=== PATIENT | male | born 1940 | race Caucasian/White ===

== ENCOUNTER 2016-07-02 14:02 | Observation (INO) | payer MEDICARE, OTHER ==
[~2016-07-02] VITALS: Ht 180.3 cm; Wt 63.3 kg
[~2016-07-02 14:02] MED LIST: 1-ME1LIQ PO; ASPI325T; CIAL5TAB PO; FOLI1TAB; IRON325T2 PO; LEVO50TA4 PO; LISI-360 PO; PRAV20 PO
[2016-07-02 14:08] VITALS: BP 110/74; PULSE 79; RESP 20; TEMP 97.8; O2SAT 97
[2016-07-02] MEDS ORDERED: ZYRT10CA PO (14:15)
--- NOTE | 2016-07-02 14:41 | PD ---
HPI Chief Complaint: Dizziness Time Seen by Provider: 14:20 Travel History International Travel<30 days: No Contact w/Intl Traveler<30days: No Traveled to known affect area: No History of Present Illness HPI This 75-year-old male says he been feeling dizzy off and on for over a year. His been worse the last couple of days. By dizziness she means that he has no equilibrium. His daughter came to see him yesterday and noted that his speech was slurred last night. She was concerned he might be having a stroke. This is improved. He says that he has fallen 5 or 6 times in the past week. He had had a stroke in the past and has been admitted to the hospital for dizziness previously. He had been on aspirin but has stopped that. His daughter says that he has stopped a lot of medications to see what is allergic to. He's also had a 40-50 pound weight loss in the last few months. He says that he has no appetite. He's had an itchy rash on his body for over a year. He got up and when he came back from [facility]. PFSH Past Medical History Arthritis: No Asthma: No Heart Rhythm Problems: No Cardiovascular Problems: Yes High Cholesterol: Yes Chest Pain: No COPD: No Cerebrovascular Accident: Yes Diabetes: No Diminished Hearing: No Diverticulitis: Yes Endocrine: Yes GERD: No Glaucoma: No Headaches: No Hepatitis: No Hiatal Hernia: No Hypertension: Yes Immune Disorder: No Kidney Stones: No Musculoskeletal: No Neurologic: No Psychiatric: No Respiratory: No Immunizations Current: Yes Renal Failure: No Seizures: No Sleep Apnea: No Thyroid Disease: Yes Ulcer: No Influenza Vaccination: Yes Past Surgical History Abdominal Surgery: Yes (BOWEL RESECTION X 2 FOR DIVERTICULITIS 1981 2006) AICD: No Appendectomy: Yes Cardiac Surgery: No Endocrine Surgery: No Genitourinary Surgery: No Gynecologic Surgery: No Neurologic Surgery: Yes (STROKE:TIA) Pacemaker: No Thoracic Surgery: No Other Surgery: Yes (PARTIAL THYROIDECTOMY) Social History Alcohol Use: Yes (12 PACK PER WEEK) Tobacco Use: No Substance Use: No Allergies-Medications (Allergen,Severity, Reaction): Coded Allergies: MRI PRECAUTION (Verified Adverse Reaction, Severe, METAL IN LEFT EYE (RBN ) 10/16/06, 08/12/15) Reported Meds & Prescriptions Reported Meds & Active Scripts Active Reported Zyrtec Allergy (Cetirizine HCl) 10 Mg Cap 10 Mg PO DAILY Folate (Folic Acid) 1 Mg Tab 1 Mg DAILY Review of Systems General / Constitutional: Positive: Weight Loss, No: Fever, Chills Eyes: No: Diploplia, Blurred Vision HENT: Positive: Lightheadedness, No: Headaches Cardiovascular: No: Chest Pain or Discomfort, Palpitations Respiratory: No: Cough, Shortness of Breath Gastrointestinal: No: Vomiting, Diarrhea Genitourinary: No: Urgency, Frequency Skin: Positive Rash, Positive Itching Neurologic: Positive: Weakness, Dizziness, No: Syncope Psychiatric: No: Anxiety Hematologic/Lymphatic: No: Easy Bruising Physical Exam Narrative GENERAL: Well-developed male SKIN: Focused skin assessment warm/dry. HEAD: Atraumatic. Normocephalic. EYES: Pupils equal and round. No scleral icterus. No injection or drainage. ENT: No nasal bleeding or discharge. Mucous membranes pink and moist. NECK: Trachea midline. No JVD. CARDIOVASCULAR: Regular rate and rhythm. No murmur appreciated. RESPIRATORY: No accessory muscle use. Clear to auscultation. Breath sounds equal bilaterally. GASTROINTESTINAL: Abdomen soft, non-tender, nondistended. Hepatic and splenic margins not palpable. MUSCULOSKELETAL: No obvious deformities. No clubbing. No cyanosis. No edema. NEUROLOGICAL: Awake and alert. No obvious cranial nerve deficits. Motor grossly within normal limits. Normal speech. There is moderate tremor greatest in the left arm PSYCHIATRIC: Appropriate mood and affect; insight and judgment normal. Data Data Last Documented VS Vital Signs Date Time Temp Pulse Resp B/P Pulse Ox O2 Delivery O2 Flow Rate FiO2 07/02/16 15:32 70 16 105/74 98 Room Air 07/02/16 14:08 97.8 Orders Electrocardiogram (07/02/16 14:36) Complete Blood Count With Diff (07/02/16 14:36) Comprehensive Metabolic Panel (07/02/16 14:36) Prothrombin Time / Inr (Pt) (07/02/16 14:36) Act Partial Throm Time (Ptt) (07/02/16 14:36) Urinalysis - C+S If Indicated (07/02/16 14:36) Magnesium (Mg) (07/02/16 14:36) Thyroid Stimulating Hormone (07/02/16 14:36) Chest, Single Ap (07/02/16 14:36) Ct Brain W/O Iv Contrast(Rout) (07/02/16 14:36) Labs Laboratory Tests Test 07/02/16 14:40 White Blood Count 2.9 TH/MM3 Red Blood Count 4.28 MIL/MM3 Hemoglobin 12.6 GM/DL Hematocrit 38.3 % Mean Corpuscular Volume 89.4 FL Mean Corpuscular Hemoglobin 29.4 PG Mean Corpuscular Hemoglobin 32.9 % Concent Red Cell Distribution Width 13.6 % Platelet Count 71 TH/MM3 Mean Platelet Volume 9.5 FL Neutrophils (%) (Auto) 54.9 % Lymphocytes (%) (Auto) 26.6 % Monocytes (%) (Auto) 11.9 % Eosinophils (%) (Auto) 6.5 % Basophils (%) (Auto) 0.1 % Neutrophils # (Auto) 1.6 TH/MM3 Lymphocytes # (Auto) 0.8 TH/MM3 Monocytes # (Auto) 0.3 TH/MM3 Eosinophils # (Auto) 0.2 TH/MM3 Basophils # (Auto) 0.0 TH/MM3 CBC Comment AUTO DIFF Differential Comment AUTO DIFF CONFIRMED Platelet Estimate LOW Platelet Morphology Comment NORMAL Ovalocytes 2+ Prothrombin Time 10.5 SEC Prothromb Time International 1.0 RATIO Ratio Activated Partial 32.4 SEC Thromboplast Time Sodium Level 139 MEQ/L Potassium Level 4.0 MEQ/L Chloride Level 103 MEQ/L Carbon Dioxide Level 24.1 MEQ/L Anion Gap 12 MEQ/L Blood Urea Nitrogen 15 MG/DL Creatinine 1.20 MG/DL Estimat Glomerular Filtration 59 ML/MIN Rate Random Glucose 87 MG/DL Calcium Level 8.2 MG/DL Magnesium Level 2.2 MG/DL Total Bilirubin 0.8 MG/DL Aspartate Amino Transf 31 U/L (AST/SGOT) Alanine Aminotransferase 22 U/L (ALT/SGPT) Alkaline Phosphatase 69 U/L Total Protein 7.6 GM/DL Albumin 2.8 GM/DL Thyroid Stimulating Hormone 5.780 uIU/ML 3rd Gen [facility] Medical Decision Making Medical Screen Exam Complete: Yes Emergency Medical Condition: Yes Medical Record Reviewed: Yes Differential Diagnosis Differential includes vertigo, TIA, CVA Narrative Course CT scan shows no acute intracranial abnormalities there is right sided sphenoid sinusitis. White count is 2.9 with platelet count of 71,000 and hemoglobin 12.6 his TSH is elevated. His daughter's description of trouble speaking last night is suggestive of a TIA. He will be given aspirin. 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
[2016-07-02 14:52] LABS: AUTOMATED NEUTROPHIL # 1.6 TH/MM3 (1.8-7.7); BASOPHIL % 0.1 % (0.0-2.0); EOSINOPHIL # 0.2 TH/MM3 (0-0.4); EOSINOPHIL % 6.5 % (0.0-4.0); HEMATOCRIT 38.3 % (39.0-51.0); LYMPH % 26.6 % (9.0-44.0); LYMPHOCYTE # 0.8 TH/MM3 (1.0-4.8); MEAN CELL VOLUME 89.4 FL (80.0-100.0); MEAN CORPUSCULAR HEMOGLOBIN 29.4 PG (27.0-34.0); MEAN CORPUSCULAR HGB CONC 32.9 % (32.0-36.0); MONO % 11.9 % (0.0-8.0); NEUT % 54.9 % (16.0-70.0); PLATELET COUNT 71 TH/MM3 (150-450); RED BLOOD COUNT 4.28 MIL/MM3 (4.50-5.90); RED CELL DISTRIBUTION WIDTH 13.6 % (11.6-17.2); WHITE BLOOD COUNT 2.9 TH/MM3 (4.0-11.0)
[2016-07-02 14:54] LABS: HEMO FLAGS AUTO DIFF
[2016-07-02 15:02] LABS: CHLORIDE 103 MEQ/L (98-107); SODIUM (NA) 139 MEQ/L (136-145)
[2016-07-02 15:07] LABS: ANION GAP 12 MEQ/L (5-15); APTT (PATIENT) 32.4 SEC (24.3-30.1); BICARBONATE 24.1 MEQ/L (21.0-32.0); BLOOD UREA NITROGEN 15 MG/DL (7-18); MAGNESIUM 2.2 MG/DL (1.5-2.5); PROTHROMBIN TIME - PATIENT 10.5 SEC (9.8-11.6)
[2016-07-02 15:10] LABS: ALT (GPT) 22 U/L (12-78); AST (GOT) 31 U/L (15-37); GLOMERULAR FILTRATION RATE 59 ML/MIN (>89)
[2016-07-02 15:11] LABS: TOTAL BILIRUBIN ADULT 0.8 MG/DL (0.2-1.0)
[2016-07-02 15:13] LABS: ALKALINE PHOSPHATASE 69 U/L (45-117)
[2016-07-02 15:19] LABS: OVALOCYTES 2+ (NORMAL); PLATELET ESTIMATE SMEAR LOW (NORMAL); PLATELET MORPHOLOGY NORMAL (NORMAL); SCAN/DIFF AUTO DIFF CONFIRMED
[2016-07-02 15:32] VITALS: BP 105/74; PULSE 70; RESP 16; O2SAT 98
--- NOTE | 2016-07-02 15:53 | RADHPO ---
EXAM DATE/TIME: 07/02/2016 15:02 [facility] COMPARISON: CT BRAIN W/O CONTRAST, August 12, 2015, 7:21. INDICATIONS : Dizziness. RADIATION DOSE: 62.19 CTDIvol (mGy) MEDICAL HISTORY : Cerebrovascular disease. Hypertension. SURGICAL HISTORY : Partial thyroidectomy. ENCOUNTER: Initial ACUITY: 3 days PAIN SCALE: 0/10 LOCATION: cranial TECHNIQUE: Multiple contiguous axial images were obtained of the head. Using automated exposure control and adj ustment of the mA and/or kV according to patient size, radiation dose was kept as low as reasonably a chievable to obtain optimal diagnostic quality images. FINDINGS: CEREBRUM: The ventricles are normal for age. No evidence of midline shift, mass lesion, hemorrhage or acute in farction. No extra-axial fluid collections are seen. POSTERIOR FOSSA: The cerebellum and brainstem are intact. The 4th ventricle is midline. The cerebellopontine angle i s unremarkable. EXTRACRANIAL: The visualized portion of the orbits is intact. Fluid in right sphenoid sinus. SKULL: The calvaria is intact. No evidence of skull fracture. CONCLUSION: 1. No acute intracranial abnormalities. Right-sided sphenoid sinusitis. Elmer Kiser MD on July 02, 2016 at 15:49 Board Certified Radiologist. This report was verified electronically.
[2016-07-02] MEDS ORDERED: ASPIRIN 325 MG TAB PO ONE (16:00)
[2016-07-02 16:07] VITALS: BP 114/69; PULSE 67; RESP 18; O2SAT 97
--- NOTE | 2016-07-02 16:19 | RADHPO ---
EXAM DATE/TIME: 07/02/2016 14:51 [facility] COMPARISON: No previous studies available for comparison. INDICATIONS : Dizzy, weak, Mass MEDICAL HISTORY : Stroke. Hypertension SURGICAL HISTORY : None. ENCOUNTER: Initial ACUITY: 3 days PAIN SCORE: 0/10 LOCATION: Bilateral chest FINDINGS: A single view of the chest demonstrates the lungs to be symmetrically aerated without evidence of mas s, infiltrate or effusion. The cardiomediastinal contours are unremarkable. Osseous structures are intact. CONCLUSION: No acute disease. Elmer Kiser MD on July 02, 2016 at 16:16 Board Certified Radiologist. This report was verified electronically.
[2016-07-02] MEDS ORDERED: SODIUM CHLORIDE 0.9% FLUSH 10 ML FLUSH IV FLUSH PRN (17:15)
[2016-07-02 17:23] VITALS: BP 124/72; PULSE 62; RESP 16; O2SAT 98
[2016-07-02] MEDS: SODIUM CHLOR 0.9% 1000 ML INJ 1,000 ML IV SCH (17:45)
[2016-07-02 18:21] VITALS: BP 119/78; PULSE 63; RESP 16; TEMP 98.1; O2SAT 97
--- NOTE | 2016-07-02 18:26 | HHI.HP ---
HPI Service [facility] Hospitalists Primary Care Physician [facility] Admission Diagnosis TIA Diagnoses: (1) TIA (transient ischemic attack) Diagnosis: Principal (2) Pancytopenia Diagnosis: Principal (3) Protein-calorie malnutrition, moderate Diagnosis: Principal (4) Frequent falls Diagnosis: Principal (5) Alcohol abuse Diagnosis: Principal Chief Complaint: "dizzy" Travel History International Travel<30 Days: No Contact w/Intl Traveler <30 Da: No Traveled to Known Affected Are: No History of Present Illness 75-year-old male with history of TIA, hyperlipidemia, hypertension, thyroid disease, and alcohol abuse presents with complaint of dizziness. Admitted fot TIA, also pancytopenic. The patient himself has a hard time remembering why he came in. His daughter is at bedside and assists with history. She states he has been falling and hasn't been eating or drinking much. The patient admits to low appetite. Apparently the patient has been dizzy on and off for 2 weeks and he's had a couple falls. His daughter states that he used to be 175-180 pounds in December and has lost 40-50 pounds since then. She states last night she went to take him to dinner and he was having some slurred speech intermittently and was stumbling. She states he told her he hadn't eaten in 2-3 days and his hands were shaking when he tried to drink anything. He admits to some heaviness in his right arm compared to the left but denies any focal leg weakness. Denies any numbness. Eyes any diplopia. He denies any fevers or chills or night sweats. Denies any abdominal pain, nausea, vomiting, or diarrhea. Patient also states he hasn't itchy rash to his legs and back and has moisturized without relief. the patient was admitted to [place] approximately one year ago for dizziness and was evaluated by neurology at that time. 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 He was also evaluated by hematology for pancytopenia at that time but he declined further workup and had signed out AMA per the EMR. The patient's daughter states patient had a stroke in 2003 but according to the EMR the patient had left-sided weakness which was attributed to TIA; there was no actual infarct seen on imaging upon my review. Review of Systems Except as stated in HPI: all other systems reviewed are Neg Past Family Social History Past Medical History Hypertension Hyperlipidemia TIAs Thyroid disease Ruptured diverticulitis Past Surgical History Bowel resection 2 for diverticulitis 1981, 2006 Appendectomy Right carotid endarterectomy Partial thyroidectomy Reported Medications Zyrtec Allergy (Cetirizine HCl) 10 Mg Cap 10 Mg PO DAILY Folate (Folic Acid) 1 Mg Tab 1 Mg DAILY Allergies: Coded Allergies: MRI PRECAUTION (Verified Adverse Reaction, Severe, METAL IN LEFT EYE (RBN ) 10/16/06, 08/12/15) Family History No family history of diabetes, heart disease, or cancer. Social History Patient currently drinks a sixpack of beer per week, but was drinking a 6 pack per day prior to this within the last couple of years. Denies drinking alcohol in 1 week. Patient quit smoking cigarettes 12 years ago. Prior to this he was smoking a few packs per day. Patient is a of the [employer]. Physical Exam Vital Signs Vital Signs Date Time Temp Pulse Resp B/P Pulse Ox O2 Delivery O2 Flow Rate FiO2 07/02/16 17:23 62 16 124/72 98 Room Air 07/02/16 16:07 67 18 114/69 97 Room Air 07/02/16 15:32 70 16 105/74 98 Room Air 07/02/16 14:08 97.8 79 20 110/74 97 Physical Exam GENERAL: This is a well-nourished, well-developed patient, in no apparent distress. SKIN: Warm and dry. Dry skin noted to the legs and feet. Abrasion at the right knee. Surgical scars to abdomen. HEAD: Atraumatic. Normocephalic. EYES: Pupils equal round and reactive. Extraocular motions intact. No scleral icterus. No injection or drainage. ENT: Uvula midline. Airway patent. NECK: Trachea midline. No lymphadenopathy. CARDIOVASCULAR: Regular rate and rhythm without murmurs, gallops, or rubs. RESPIRATORY: Clear to auscultation. Breath sounds equal bilaterally. No wheezes , rales, or rhonchi. GASTROINTESTINAL: Abdomen soft, non-tender, nondistended. No hepato-splenomegaly , or palpable masses. No guarding. MUSCULOSKELETAL: No axillary lymphadenopathy. No lower extremity edema bilaterally. NEUROLOGICAL: Awake and alert. No obvious cranial nerve deficits. Motor grossly within normal limits. Five out of 5 muscle strength in bilateral arms and legs. Normal speech. Laboratory Laboratory Tests Test 07/02/16 14:40 White Blood Count 2.9 Red Blood Count 4.28 Hemoglobin 12.6 Hematocrit 38.3 Mean Corpuscular Volume 89.4 Mean Corpuscular Hemoglobin 29.4 Mean Corpuscular Hemoglobin 32.9 Concent Red Cell Distribution Width 13.6 Platelet Count 71 Mean Platelet Volume 9.5 Neutrophils (%) (Auto) 54.9 Lymphocytes (%) (Auto) 26.6 Monocytes (%) (Auto) 11.9 Eosinophils (%) (Auto) 6.5 Basophils (%) (Auto) 0.1 Neutrophils # (Auto) 1.6 Lymphocytes # (Auto) 0.8 Monocytes # (Auto) 0.3 Eosinophils # (Auto) 0.2 Basophils # (Auto) 0.0 CBC Comment AUTO DIFF Differential Comment AUTO DIFF CONFIRMED Platelet Estimate LOW Platelet Morphology Comment NORMAL Ovalocytes 2+ Prothrombin Time 10.5 Prothromb Time International 1.0 Ratio Activated Partial 32.4 Thromboplast Time Sodium Level 139 Potassium Level 4.0 Chloride Level 103 Carbon Dioxide Level 24.1 Anion Gap 12 Blood Urea Nitrogen 15 Creatinine 1.20 Estimat Glomerular Filtration 59 Rate Random Glucose 87 Calcium Level 8.2 Magnesium Level 2.2 Total Bilirubin 0.8 Aspartate Amino Transf 31 (AST/SGOT) Alanine Aminotransferase 22 (ALT/SGPT) Alkaline Phosphatase 69 Total Protein 7.6 Albumin 2.8 Thyroid Stimulating Hormone 5.780 3rd Gen Result Diagram: 07/02/16 1440 07/02/16 1440 Imaging Last Impressions Head CT 07/02/16 143 Signed Impressions: Service Date/Time: Saturday, July 02, 2016 15:02 - CONCLUSION: 1. No acute intracranial abnormalities. Right-sided sphenoid sinusitis. Elmer Kiser MD Chest X-Ray 07/02/16 1436 Signed Impressions: Service Date/Time: Saturday, July 02, 2016 14:51 - CONCLUSION: No acute disease. Elmer Kiser MD Assessment and Plan Assessment and Plan 75-year-old male with: TIA: Patient presents with dizziness and frequent falls will slurred speech last night. He denies drinking alcohol in one week. Patient has a history of hypertension and hyperlipidemia but is not on current medications as he discontinued them due to possible allergy. He used to take aspirin, lisinopril , and a statin. Patient does have history of multiple TIAs. -Patient was given 325 mg of aspirin in the ED -CT of the brain personally reviewed with no evidence of acute intracranial abnormality aside from right sphenoid sinusitis. -EKG pending -Patient cannot undergo MRI due to metal in his eye. Will order a CT with contrast of the brain and carotids. -Echo -Lipid profile -Neurology consulted -Neuro checks -Telemetry -Continue daily baby aspirin -Heart healthy diet Pancytopenia: WBC 2.9. Hemoglobin 12.6. Platelets 71. Previously pancytopenic about 1 year ago and had hematology eval at that time but declined further workup. Likely attributed to chronic alcohol use. Suspicious for cirrhosis or liver cancer. -Chest x-ray personally reviewed with no acute disease. -Complete abdominal US to evaluate for cirrhosis or masses. -Hematology consulted -Monitor CBC Malnutrition/Protein-calorie deficient: Albumin low at 2.8. Patient 23% below usual weight. 83.7% of ideal body weight. Patient admits to low appetite and has not eaten much in several days. 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 -PT eval -Check B12 level -Check Vitamin D level -Check Folate level Alcohol abuse: Drinks a sixpack per week. Prior to this within the last couple of years he was drinking a 6 pack per day. He has not had alcohol in one week so is out of window for withdrawal to occur. -Resume folic acid -Start multivitamin and thiamine Hypothyroidism: History of partial thyroidectomy. TSH elevated at 5.780. -Check free T4 Itching/dry skin: May be related to possible liver disease. DVT prophylaxis: TEDs/SCDs. Avoid anticoagulation due to thrombocytopenia. Written by Billie Manzo PA-C acting as scribe for Dr. Linder on 07/02/16 at ~ 1650. This note was transcribed by charo Manzo. I, Dr. Triston Medina personally performed the history, physical exam, and medical decision making; and confirmed the accuracy of the information in the transcribed note. Authenticated by Dr. Triston Medina on 07/05/16 at 21:56. Discussed Condition With ED physician, patient Problem Qualifiers (1) TIA (transient ischemic attack): Qualified Code: G45.9 - Transient cerebral ischemia, unspecified type Billie Manzo July 02, 2016 18:26 Triston Jones MD July 05, 2016 21:57
[2016-07-02 20:00] VITALS: BP 137/76; PULSE 58; PULSE 60; RESP 20; TEMP 97.4; O2SAT 97
[2016-07-02] MEDS: SODIUM CHLORIDE 0.9% FLUSH 10 ML FLUSH IV FLUSH SCH (21:00)
[2016-07-02] MEDS ORDERED: IOHEXOL 350 MG/ML 10 ML VIAL (for RAD DIAG) IV ONE (23:47)
[2016-07-03] VITALS: BP 153/82; PULSE 54; RESP 20; TEMP 97.9; O2SAT 94
--- NOTE | 2016-07-03 00:03 | RADHPO ---
EXAM DATE/TIME: 07/02/2016 22:20 [facility] COMPARISON: CTA BRAIN W 3D RECON, August 12, 2015, 11:05. INDICATIONS : Transient ischemic attack. IV CONTRAST: 100 cc Omnipaque 350 (iohexol) IV ; Cumulative dose for multiple exams. RADIATION DOSE: 42.82 CTDIvol (mGy) ; Combined studies MEDICAL HISTORY : Cerebrovascular disease. Hypertension. SURGICAL HISTORY : Thyroidectomy. ENCOUNTER: Initial ACUITY: 1 day PAIN SCALE: 3/10 LOCATION: cranial TECHNIQUE: Volumetric scanning was performed using a multi-row detector CT scanner. The data was post processed with a variety of visualization algorithms including full volume maximum intensity projection, multi -planar sliding thin slab reformation, curved planar reformation, and surface rendering techniques. Using automated exposure control and adjustment of the mA and/or kV according to patient size, radiat ion dose was kept as low as reasonably achievable to obtain optimal diagnostic quality images. FINDINGS: There is excellent visualization of the major intracranial arteries out to the second-order branch ve ssels. There is no evidence for aneurysm, vessel truncation or stenosis, and no evidence for vascula r malformation. Calcified atherosclerotic plaque within the intercavernous ICAs bilaterally. No lumin al narrowing observed. CONCLUSION: Atherosclerotic plaque within the intercavernous ICAs bilaterally. No hemodynamically significant aashish nosis. Steven Solomon Jr., MD on July 02, 2016 at 23:59 Board Certified Radiologist. This report was verified electronically.
--- NOTE | 2016-07-03 00:09 | RADHPO ---
EXAM DATE/TIME: 07/02/2016 22:20 [facility] COMPARISON: CTA CAROTID ARTERIES W 3D RECON, August 12, 2015, 11:05. INDICATIONS : Transient Ischemic Attack. IV CONTRAST: 100 cc Omnipaque 350 (iohexol) IV ; Cumulative dose for multiple exams. RADIATION DOSE: 42.82 CTDIvol (mGy) ; Combined studies MEDICAL HISTORY : Cerebrovascular disease. Hypertension. SURGICAL HISTORY : Thyroidectomy. ENCOUNTER: Initial ACUITY: 1 day PAIN SCALE: 3/10 LOCATION: neck Elevated flow velocities and ICA/CCA ratios have been found to correlate with increased degrees of vessel stenosis, calculated as percentage of diameter relative to a normal segment of distal ICA/CCA. TECHNIQUE: Volumetric scanning was performed using a multirow detector CT scanner. The data was post processed with a variety of visualization algorithms including full-volume maximum intensity projection, multip lanar sliding thin-slab reformation, curved-planar reformation, and surface-rendering techniques. Us ing automated exposure control and adjustment of the mA and/or kV according to patient size, radiatio n dose was kept as low as reasonably achievable to obtain optimal diagnostic quality images. FINDINGS: AORTIC ARCH: The left common carotid artery and brachiocephalic artery share a common origin. There is a 50% steno sis involving the left subclavian artery origin. This is stable. RIGHT CAROTID: Prior endarterectomy noted on the right. There is a 50% stenosis again seen occurring approximately 1 .5 cm cephalad to the ICA origin. This is stable. No ulceration. The more cephalad portion of the ext racranial ICA, ECA, and CCA are patent. LEFT CAROTID: Calcified plaque involving the carotid bulb extending into the proximal ICA. No luminal narrowing by NASCET criteria. No ulceration. The ECA and CCA are patent. VERTEBRALS: The vertebral arteries have a symmetric diameter. No stenotic lesions are seen. The right lobe of the thyroid is either atrophic or surgically absent. CONCLUSION: 1. Stable exam with 50% stenosis of the right ICA. Left ICA and vertebral arteries are patent. 2. Either atrophic or surgically absent right lobe of the thyroid. Steven Solomon Jr., MD on July 03, 2016 at 0:02 Board Certified Radiologist. This report was verified electronically.
[2016-07-03] MEDS: SODIUM CHLOR 0.9% 1000 ML INJ 1,000 ML IV SCH (02:45)
[2016-07-03 04:00] VITALS: BP 178/84; PULSE 54; RESP 18; TEMP 98.3
[2016-07-03] MEDS: MEGESTROL ACETATE 40 MG TAB PO SCH ×4 (06:00→17:11)
[2016-07-03 06:11] LABS: BLOOD, URINE NEG (NEG); GLUCOSE,URINE NEG (NEG); KETONE, URINE 15 mg/dL (NEG); NITRITE,URINE NEG (NEG); PH, URINE 5.5 (5.0-8.5)
[2016-07-03 06:29] LABS: URINE COLOR AMBER (YELLW/STRAW)
[2016-07-03 06:30] LABS: MUCUS URINE FEW /lpf (OCC)
[2016-07-03 06:36] LABS: GRANULAR CAST, URINE 0-2 /lpf; SQUAMOUS EPITHELIAL CELL URINE 0-5 /hpf (0-5)
[2016-07-03 06:37] LABS: WBC, URINE 0-2 /hpf (0-5)
[2016-07-03 06:38] LABS: COMMENT (UR) CULT NOT INDICATED; CULTURE IF INDICATED CULT NOT INDICATED
[2016-07-03 07:08] LABS: AUTOMATED NEUTROPHIL # 1.2 TH/MM3 (1.8-7.7); BASOPHIL # 0.1 TH/MM3 (0-0.2); BASOPHIL % 3.4 % (0.0-2.0); EOSINOPHIL # 0.2 TH/MM3 (0-0.4); HEMATOCRIT 31.6 % (39.0-51.0); LYMPH % 29.9 % (9.0-44.0); LYMPHOCYTE # 0.7 TH/MM3 (1.0-4.8); MEAN CELL VOLUME 87.6 FL (80.0-100.0); MEAN CORPUSCULAR HEMOGLOBIN 29.9 PG (27.0-34.0); MEAN CORPUSCULAR HGB CONC 34.2 % (32.0-36.0); MONO % 10.3 % (0.0-8.0); NEUT % 49.4 % (16.0-70.0); PLATELET COUNT 58 TH/MM3 (150-450); RED BLOOD COUNT 3.61 MIL/MM3 (4.50-5.90); RED CELL DISTRIBUTION WIDTH 13.2 % (11.6-17.2); WHITE BLOOD COUNT 2.5 TH/MM3 (4.0-11.0)
[2016-07-03 07:20] LABS: BICARBONATE 23.9 MEQ/L (21.0-32.0)
[2016-07-03 07:32] LABS: HEMO FLAGS AUTO DIFF
[2016-07-03 08:00] VITALS: BP 160/78; PULSE 59; RESP 18; TEMP 98.6; O2SAT 96
[2016-07-03 08:09] LABS: OVALOCYTES 2+ (NORMAL); PLATELET ESTIMATE SMEAR LOW (NORMAL); PLATELET MORPHOLOGY NORMAL (NORMAL); SCAN/DIFF AUTO DIFF CONFIRMED
[2016-07-03] MEDS ORDERED: CYANOCOBALAMIN 1000 MCG/ML VIAL SQ ONE (09:00)
[2016-07-03] MEDS ORDERED: ASPIRIN EC 81 MG TABEC PO SCH (09:00)
[2016-07-03 09:50] LABS: HDL CHOLESTEROL 30.7 MG/DL (40.0-60.0)
--- NOTE | 2016-07-03 10:24 | MB ---
cc: LIBRADOKRYSTAL Staley DATE OF 1940 DATE OF SERVICE 07/03/2016 REFERRING PHYSICIAN Billie Manzo CHIEF COMPLAINT Billie Manzo requests a consultation for Mr. Pathak regarding pancytopenia. HISTORY OF PRESENT ILLNESS Mr. Pathak is a 75-year-old man with multiple medical problems. He has a history of hypertension, hyperlipidemia, previous TIA, thyroid disease and history of ruptured diverticulitis. He was seen a year ago by my partner Dr. Christopher Alarcon in July of 2015 for pancytopenia. He came into the emergency room with the dizziness. The dizziness has been gone on and off for a year. It was presenting complaint from a year ago at the time of my partner's consultation with him. He has fallen 5-6 times in the past week. He has had a 40-50 pound weight loss. He has been on an aspirin but stopped. He came in with slurred speech and although initial evaluation in the emergency room shows a CT scan with no acute intracranial abnormality, he was suspected to have TIA and was admitted for observation. Additional imaging included a neck CTA that showed stable exam with 50% stenosis of the right ICA. The left ICA and vertebral bodies were patent. CT of the head shows atherosclerotic disease within the intercavernous ICA bilaterally but no significant stenosis is identified. The CT of the head shows right-sided sphenoid sinusitis but no acute stroke. Chest x-ray was negative. During the workup he was found to have pancytopenia with white blood cell count of 2.9, hemoglobin of 12.6, platelet count of 71,000. He had evidence for ovalocytes. The following day his counts were again low. His previous B12 deficiency has been corrected. His serum B12 level is normal. Vitamin D is slightly low. Folate is normal. He reports that his last drink was about a week ago. Hematology/Oncology is consulted for the pancytopenia. Review of the electronic medical record show evidence of leukopenia dating back to July 2015. No labs are available between 2006 and 2015. His anemia developed in 2016 as well. It was normal prior to that. His platelet count was within the lower limits of normal back in 2007 but was already less than 100,000 in 2016 and continues to decrease. He tolerated the aspirin from his admission. Denies any bleeding at present. He receives his care at the [facility]. He was referred to the cripple chaser/oncologist in [place] but decided not to go. He is agreeable to pursuing evaluation for his pancytopenia now. PAST MEDICAL HISTORY 1. Prior stroke. Right-sided numbness. 2. TIA. 3. Hyperlipidemia 4. Hypothyroidism. 5. Diverticulosis. 6. Alcohol abuse. 7. Hypertension. 8. Pancytopenia. PAST SURGICAL HISTORY 1. Appendectomy. 2. Repair of diverticula. FAMILY HISTORY No family history of blood disorder. He has a daughter and two sons who are healthy. He recalls reports that both parents of cancer in their 60s. SOCIAL HISTORY He quit smoking 10 years ago. He drank heavily and his last drink was about a week ago. Hard to estimate from the history how much he was actually drinking. ALLERGIES No known drug allergies. CURRENT MEDICATIONS 1. Aspirin 81 mg once a day. 2. Folic acid. 3. B12. 4. Theragran-M. 5. Megace. 6. Normal saline. PHYSICAL EXAMINATION VITAL SIGNS: Temperature 98.3 heart rate 54, respiratory rate 18, blood pressure 178/84. GENERAL APPEARANCE: Mr. Pathak is a well-developed, slender elderly man who looks his stated age. HEENT: His pupils are round, reactive to light and accommodation. Sclerae nonicteric. Oropharynx is clear. NECK: Supple. LUNGS: Clear. CARDIOVASCULAR: Exam reveals normal rate and rhythm. Mild bradycardia. ABDOMEN: Benign and flat. LOWER EXTREMITIES: With no edema. NEUROLOGICAL: Exam is nonfocal. His speech is fluent. LABORATORY DATA Significant for white blood cell count of 2.5, hemoglobin 10.8, platelet count of 58,008. Platelet volume was 100, MCV 87.6. ASSESSMENT AND PLAN Mr. Pathak is a 75-year-old man with progressive cytopenia. He has pancytopenia with evidence for leukopenia, anemia and thrombocytopenia. This has been worsening since 2006. On his last consultation by my partner, Dr. Alarcon, he suggested evaluation for underlying liver disease which I concur. I will obtain an ultrasound of the liver and spleen. 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 Evidence of this is looked for with the ultrasound of the liver and spleen. In the meantime, in light of his atherosclerotic disease and presumptive diagnosis of TIA, aspirin is continued. His platelet count remains over 50,000. We will monitor closely for bleeding. On his evaluation in July of 2015 he had anemia with inappropriately low retic count. Sed rate was normal. Evaluation for underlying bone marrow process is considered. I am unable to exclude underlying myelodysplastic syndrome and those changes. I will check iron studies and continue to repeat replete the B12. We discussed the risks and benefit of bone marrow biopsy evaluation which she declined previously but is agreeable to proceeding now. We will refer Mr. Pathak to the inpatient radiology for bone marrow biopsy evaluation. Mr. Manzo's questions were answered to his satisfaction. Workup for his TIA per primary team. No specific therapy required for the pancytopenia. No transfusions are needed at this point. His questions were answered to his satisfaction. Krystal Prasad MD RAD/SSB /8:45 AM /10:04 AM
[2016-07-03] MEDS: MULTIVITAMINS/MINERALS THERAPEUTIC TAB PO SCH (10:28)
[2016-07-03] MEDS: THIAMINE HCL 100 MG TAB PO SCH (10:28)
[2016-07-03] MEDS: FOLIC ACID 1 MG TAB PO SCH (10:28)
[2016-07-03] MEDS: SODIUM CHLORIDE 0.9% FLUSH 10 ML FLUSH IV FLUSH SCH ×2 (10:29→21:00)
--- NOTE | 2016-07-03 10:35 | RADHPO ---
EXAM DATE/TIME: 07/03/2016 09:14 [facility] COMPARISON: No previous studies available for comparison. INDICATIONS : Fourty to fifty pound weight loss. Evaluate for cirrhosis or mass. MEDICAL HISTORY : Cerebrovascular disease. Hypertension. ETOH. Ruptured diverticulitis. SURGICAL HISTORY : Thyroidectomy. Appendectomy. Right endarterectomy. Bowel resection. ENCOUNTER: Initial ACUITY: 1 day PAIN SCORE: 0/10 LOCATION: Bilateral upper quadrant MEASUREMENTS: LIVER: 15.3 cm length COMMON DUCT: 6 mm RIGHT KIDNEY: 10.3 x 4.8 x 5.1 cm LEFT KIDNEY: 9.3 x 4.4 x 4.6 cm SPLEEN: 12.9 cm length AORTA: 1.7cm maximal FINDINGS: LIVER: Normal echotexture without focal lesion or ductal dilatation. COMMON DUCT: No intraluminal mass or stone visualized. GALLBLADDER: Contains probable gallstone in the gallbladder neck without shadowing, demonstrates no wall thickenin g or pericholecystic fluid. PANCREAS: Now well-visualized.. RIGHT KIDNEY: No hydronephrosis, stone or mass. LEFT KIDNEY: No hydronephrosis, stone or mass. SPLEEN: No focal lesion. AORTA: Not well seen. IVC: Not well seen. CONCLUSION: 1. Liver appears unremarkable. 2. Echogenic non-shadowing focus in the gallbladder neck likely representing gallstone. 3. Nonvisualized portions of the pancreas, aorta, inferior vena cava and left lobe of the liver. 4. Spleen is at the upper limits of normal in size. Dylan Alvarez MD on July 03, 2016 at 10:31 Board Certified Radiologist. This report was verified electronically.
--- NOTE | 2016-07-03 11:05 | HHI.PR ---
Subjective Remarks Patient denies dizziness denies cp/sob denies fevers/chills still has poor appetite denies headache, dizziness BP elevated into the 150's and 160's Objective Vitals Vital Signs Date Time Temp Pulse Resp B/P Pulse Ox O2 Delivery O2 Flow Rate FiO2 07/03/16 08:00 98.6 59 18 160/78 96 07/03/16 04:00 98.3 54 18 178/84 07/03/16 00:00 97.9 54 20 153/82 94 07/02/16 20:00 60 07/02/16 20:00 97.4 58 20 137/76 97 07/02/16 18:21 98.1 63 16 119/78 97 07/02/16 17:23 62 16 124/72 98 Room Air 07/02/16 16:07 67 18 114/69 97 Room Air 07/02/16 15:32 70 16 105/74 98 Room Air 07/02/16 14:08 97.8 79 20 110/74 97 I/O 07/02/16 07/02/16 07/02/16 07/03/16 07/03/16 07/03/16 06:59 14:59 22:59 06:59 14:59 22:59 Intake Total 523 ml 542 ml Output Total 0 ml 500 ml Balance 523 ml 42 ml Intake Oral 120 ml 0 ml IV Total 403 ml 542 ml Output Urine Total 0 ml 500 ml # Bowel Movements 0 0 Result Diagram: 07/03/16 0655 07/03/16 0655 Imaging Last Impressions Head CT 07/02/16 1436 Signed Impressions: Service Date/Time: Saturday, July 02, 2016 15:02 - CONCLUSION: 1. No acute intracranial abnormalities. Right-sided sphenoid sinusitis. Elmer Kiser MD Chest X-Ray 07/02/16 1436 Signed Impressions: Service Date/Time: Saturday, July 02, 2016 14:51 - CONCLUSION: No acute disease. Elmer Kiser MD Neck CTA 07/02/16 0000 Signed Impressions: Service Date/Time: Saturday, July 02, 2016 22:20 - CONCLUSION: 1. Stable exam with 50%% stenosis of the right ICA. Left ICA and vertebral arteries are patent. 2. Either atrophic or surgically absent right lobe of the thyroid. Steven Solomon Jr., MD Head CTA 07/02/16 0000 Signed Impressions: Service Date/Time: Saturday, July 02, 2016 22:20 - CONCLUSION: Atherosclerotic plaque within the intercavernous ICAs bilaterally. No hemodynamically significant stenosis. Steven Solomon Jr., MD Objective Remarks GENERAL: This is a well-nourished, well-developed patient, in no apparent distress. SKIN: Warm and dry. Dry skin noted to the legs and feet. Abrasion at the right knee. Surgical scars to abdomen. HEAD: Atraumatic. Normocephalic. EYES: Pupils equal round and reactive. Extraocular motions intact. No scleral icterus. No injection or drainage. ENT: Uvula midline. Airway patent. NECK: Trachea midline. No lymphadenopathy. CARDIOVASCULAR: Regular rate and rhythm without murmurs, gallops, or rubs. RESPIRATORY: Clear to auscultation. Breath sounds equal bilaterally. No wheezes , rales, or rhonchi. GASTROINTESTINAL: Abdomen soft, non-tender, nondistended. No hepato-splenomegaly , or palpable masses. No guarding. MUSCULOSKELETAL: No axillary lymphadenopathy. No lower extremity edema bilaterally. NEUROLOGICAL: Awake and alert. No obvious cranial nerve deficits. Motor grossly within normal limits. Five out of 5 muscle strength in bilateral arms and legs. Normal speech. Medications and IVs Current Medications Medications (Trade) Dose Ordered Sig/Uzair Route Start Time Stop Time Status Last Admin (NS Flush) 2 ml UNSCH PRN IV FLUSH 07/02/16 17:15 (NS Flush) 2 ml BID IV FLUSH 07/02/16 21:00 07/03/16 10:29 (Ecotrin Ec) 81 mg DAILY PO 07/03/16 09:00 Hold 07/03/16 10:28 (Megace) 100 mg Q6HR PO 07/02/16 18:00 (Folate) 1 mg DAILY PO 07/03/16 09:00 07/03/16 10:28 (Vitamin B1) 100 mg DAILY PO 07/03/16 09:00 07/03/16 10:28 (Theragran M Tab) 1 tab DAILY PO 07/03/16 09:00 07/08/16 08:59 07/03/16 10:28 Urinary Catheter: No Vascular Central Line Catheter: No A/P Problem List: (1) TIA (transient ischemic attack) ICD Code: G45.9 Status: Acute Plan: 75-year-old male presents with dizziness and frequent falls with slurred speech the night prior to presentation to the hospital. The patient denies drinking alcohol in a week although he has history of alcohol abuse. Patient also has history of hypertension hyperlipidemia but is currently not on medications as he stays discontinued them due to possible allergy. Patient is to take aspirin, lisinopril and a statin. Patient has history of multiple TIAs. Symptoms have completely resolved when patient already seen in emergency department. Patient was given aspirin 325 mg in the emergency department. Patient then placed for outpatient observation in the medical floor. CT of the brain was reviewed by me show any evidence of acute intracranial abnormality aside from right sphenoid sinusitis. EKG shows sinus rhythm with a ventricular rate of 66 bpm and anteroseptal T- wave changes which are nonspecific. Patient is unable to undergo MRI due to metal in his eye. Head CTA ordered and showed atherosclerotic plaque within the intercavernous ICAs bilaterally but no hemodynamically significant stenosis. Neck CTA shows 50% stenosis of the right ICA. Left ICA and vertebral arteries are patent. Either atrophic or surgically absent right lobe of thyroid. Continue to monitor on telemetry, continue to monitor neuro checks which have been stable Hold daily baby aspirin in preparation for bone marrow biopsy Neurology consultation pending. (2) Pancytopenia ICD Code: D61.818 Status: Acute Plan: Pancytopenia is chronic. Patient previously pancytopenia, 1 year ago. Upon review of records hematology evaluation was obtained however patient declined any further workup. Abdominal ultrasound ordered and shows unremarkable liver. Gallstones present. No visualized portion of the pancreas, aorta and inferior vena cava and left lobe of the liver. Spleen is at the upper limits of normal in size. Hematology consulted. Bone marrow biopsy has been ordered to be done by invasive radiology. (3) Protein-calorie malnutrition, moderate ICD Code: E44.0 Status: Acute Plan: Patient with low at 2.8. BMI of 19.5. 20% usual weight. Patient admits to low appetite and reported 50 pound weight loss by daughter. Continue Megace, continue IV fluids Dietitian consulted. Ensure with meals Monitor magnesium and BMP. (4) Frequent falls ICD Code: R29.6 Status: Acute Plan: PT evaluation B12 and folate within normal levels. Vitamin D slightly decreased. (5) Alcohol abuse ICD Code: F10.10 Status: Acute Plan: Patient drinks a sixpack per week. Patient prior to this when the last couple of years is drinking 6 pack per day. Patient hasn't had alcohol in one week. Continue folic acid, continue multivitamins and thiamine. (6) Hypothyroidism ICD Code: E03.9 Status: Acute Plan: Patient has history of partial thyroidectomy. TSH is elevated at 5.780, however free T4 normal at 1.29.. Assessment and Plan DVT prophylaxis: Continue SCDs, no chemoprophylaxis due to thrombocytopenia. Problem Qualifiers (1) TIA (transient ischemic attack): Qualified Code: G45.9 - Transient cerebral ischemia, unspecified type (2) Hypothyroidism: Qualified Code: E89.0 - Postoperative hypothyroidism Triston Jones MD July 03, 2016 11:05
--- NOTE | 2016-07-03 11:23 | EKG ---
Date Performed: 07/02/2016 Time Performed: 14:47:20 PTAGE: 75 years EKG: Sinus rhythm Indeterminate axis Anteroseptal T wave changes are nonspecific Borderline ECG NO PREVIOUS TRACING DOCTOR: Anatoly Encarnacion Interpretating Date/Time 07/03/2016 11:18:47
--- NOTE | 2016-07-03 11:41 | EC ---
Study Study Date:07/03/2016 STUDY CONCLUSIONS SUMMARY - Left ventricle: The cavity size was normal. Wall thickness was normal. Systolic function was normal. The estimated ejection fraction was in the range of 55% to 60%. Wall motion was normal; there were no regional wall motion abnormalities. - Aortic valve: Valve area: 1.97cm^2(VTI). Valve area: 2.11cm^2 (Vmax). - Pericardium, extracardiac: A trivial pericardial effusion was identified. Features were not consistent with tamponade physiology. If LV function is below 40, please consider prescribing an ACEI or ARB or document rationale for non-use. PROCEDURE DATA STUDY STATUS: Elective. Procedure: Transthoracic echocardiography. Image quality was good. Scanning was performed from the parasternal, apical, and subcostal acoustic windows. Study completion: The patient tolerated the procedure well. Transthoracic echocardiography. M-mode, complete 2D, complete spectral Doppler, and color Doppler. Height: Height: 71in. Weight: Weight: 137.7lb. Body mass index: BMI: 19.2kg/m^2. Body surface area: BSA: 1.8m^2. Patient status: Inpatient. CARDIAC ANATOMY LEFT VENTRICLE: The cavity size was normal. Wall thickness was normal. Systolic function was normal. The estimated ejection fraction was in the range of 55% to 60%. Wall motion was normal; there were no regional wall motion abnormalities. AORTIC VALVE: Trileaflet; normal thickness leaflets. Doppler: Transvalvular velocity was within the normal range. There was no stenosis. No regurgitation. Valve area: 1.97cm^2(VTI). Indexed valve area: 1.09cm^2/m^2 (VTI). Valve area: 2.11cm^2 (Vmax). Indexed valve area: 1.17cm^2/m^2 (Vmax). Mean gradient: 3mm Hg (S). AORTA: Aortic root: The aortic root was normal in size. MITRAL VALVE: Structurally normal valve. Doppler: Transvalvular velocity was within the normal range. There was no evidence for stenosis. No regurgitation. LEFT ATRIUM: The atrium was normal in size. RIGHT VENTRICLE: The cavity size was normal. Wall thickness was normal. PULMONIC VALVE: Doppler: Transvalvular velocity was within the normal range. There was no evidence for stenosis. No regurgitation. TRICUSPID VALVE: Structurally normal valve. Doppler: Transvalvular velocity was within the normal range. No regurgitation. PULMONARY ARTERY: The main pulmonary artery was normal-sized. Systolic pressure was within the normal range. RIGHT ATRIUM: The atrium was normal in size. PERICARDIUM: A trivial pericardial effusion was identified. Doppler: Features were not consistent with tamponade physiology. SYSTEMIC VEINS: Inferior vena cava: The vessel was normal in size. Patient weight: 137.7lb _Ejection fraction:_ 65-75% _Fractional shortening:_ 32% up to 5Kg 5-11.5Kg 11.6-22.9Kg 23-45Kg 45-57Kg Aortic Root 7-13 <17 13-22 17-27 17-27 LA diam 6-13 <23 24-38 33-47 37-40 RVID 10-17 7-15 7-15 7-18 8-17 LVIDd 12-22 <32 24-38 33-47 37-40 LVPW 2-4 3-6 5-7 6-8 7-8 IVS 2-4 3-6 5-7 6-8 7-8 BASIC MEASUREMENTS ADULT NORMAL Left ventricle LV internal dimension, ED, chordal *42.5 mm 43-52 level, PLAX LV internal dimension, ES, chordal 31 mm 23-38 level, PLAX Fractional shortening, chordal level, *27 % >29 PLAX LV posterior wall thickness, ED 11.2 mm IVS/LVPW ratio, ED 1 <1.3 Ventricular septum Septal thickness, ED 11.2 mm Aortic valve Leaflet separation 19 mm 15-26 Aorta Root diameter, ED 34 mm Left atrium Anterior-posterior dimension 34 mm Anterior-posterior dimension index 1.89 cm/m^2 <2.2 BASIC MEASUREMENTS ADULT NORMAL Aortic valve Leaflet separation 19 mm 15-26 DOPPLER MEASUREMENTS ADULT NORMAL Aortic valve Peak velocity, S 108 cm/s Mean velocity, S 83.8 cm/s VTI, S 24.4 cm Mean gradient, S 3 mm Hg Valve area, VTI 1.97 cm^2 Valve area index, VTI 1.09 cm^2/m^2 Valve area, Vmax 2.11 cm^2 Valve area index, Vmax 1.17 cm^2/m^2 Mitral valve Peak E-wave velocity 59.2 cm/s Peak A-wave velocity 79 cm/s Deceleration time *299 ms 150-230 Peak E/A ratio 0.7 Pulmonic valve Peak velocity, S 82.7 cm/s LEGEND: Mean values are shown as u=mean value. Asterisk (*) ross values outside specified normal range. Prepared and signed by Anatoly Encarnacion [id number]
[2016-07-03 12:00] VITALS: BP 114/65; PULSE 67; RESP 18; TEMP 98.9; O2SAT 97
[2016-07-03 20:00] VITALS: BP 119/69; PULSE 64; RESP 20; TEMP 98.2; O2SAT 98
[2016-07-04] VITALS: BP 130/70; PULSE 63; RESP 18; TEMP 97; O2SAT 99
[2016-07-04 04:00] VITALS: BP 134/79; PULSE 67; RESP 16; TEMP 98.9; O2SAT 97
--- NOTE | 2016-07-04 05:46 | MB ---
cc: HARVEY PARNELL DATE OF CONSULTATION July 03, 2016 REASON FOR CONSULTATION TIA. HISTORY OF PRESENT ILLNESS Mr. Pathak is a 75-year-old male with a past medical history of hypertension, hyperlipidemia, TIA, thyroid disease, multiple falls, malnutrition, and chronic alcohol abuse, who presented to the [facility] for complaint of dizziness. The patient described the episode as occurring a week ago, "comes and goes". He describes spinning sensation in the head with feeling of nausea, mild blurry vision with slurred speech and this happens especially, "When I get up quickly" and when he turns his head up, not to the sides. He also reports bilateral hand tremor that has been ongoing for 6 months. He has sustained multiple falls due to difficulty with his balance and reports decline in memory and occasional episodes of searching for words. The patient as per the medical record review has not been eating or drinking much and he has reportedly lost between 40-50 pounds since December 2015. Yesterday the daughter reports stumbling and slurred speech. He states that he feels his right arm heavy compared to his leg left arm. Denies headache, double vision, disorientation, weakness on the left side. He was admitted to [place] about a year ago and was evaluated by Neurology and he was found to have 50-60% stenosis of his proximal right ICA status post endarterectomy on neck CTA. And he was also evaluated by Hematology for pancytopenia, at that time declined further workup and left AMA as per review of the medical records. Patient also had a TIA with left-sided weakness in 2003 with negative imaging. REVIEW OF SYSTEMS A 12-point review of systems is negative except for what is stated in the HPI. PAST MEDICAL HISTORY 1. Hypertension. 2. Hyperlipidemia. 3. TIA. 4. Thyroid disease. 5. Ruptured diverticulitis. 6. Pancytopenia. PAST SURGICAL HISTORY 1. Bowel resection twice for diverticulitis in 1981 and 2006. 2. Appendectomy. 3. Right carotid endarterectomy. 4. Partial thyroidectomy. MEDICATIONS Zyrtec. Folate. ALLERGIES No known allergies. FAMILY HISTORY Noncontributory. SOCIAL HISTORY Drinks daily. Quit cigarette smoking 12 years ago. PHYSICAL EXAMINATION GENERAL: Awake, alert, oriented. Good historian. In mild distress, but he did not want to be seen today, he was preparing to get lunch. However, he was pleasant and he apologized and asked me to see him. HEENT: Atraumatic, normocephalic. Intact hearing and intact vision. NECK: Trachea in the midline. No carotid bruit. CARDIOVASCULAR: Regular rate and rhythm. RESPIRATORY: Clear to auscultation. No wheezes. GASTROINTESTINAL: Soft. Abdomen nontender. MUSCULOSKELETAL: No cyanosis, no clubbing, no edema of the extremities. NEUROLOGICAL: Awake, alert, oriented to place and person, not to time. Did not know the year and the day of the week. Intact speech. Intact speech content. Intact naming repetition. No dysarthria. No dysphagia. No nystagmus. No diplopia. No facial asymmetry. Grade 5- bilateral upper extremities shoulder abduction, elbow extension with a lot of give-way. Grade 4- right hip flexion, grade 4+ left hip flexion. Knee extension grade 5- bilateral. Knee flexion grade 5-bilateral. 5- bilateral foot dorsiflexion and plantar flexion. Reflexes 1+ bilateral and symmetrical upper extremities. No Stanislav's sign. Bilateral lower extremities - 1+ bilateral, symmetrical sluggish ankle reflexes. Plantar left upgoing, right mute. [id number] right slow, left ataxic with past-pointing. PSYCHOLOGICAL: Intact mood and behavior. No visual hallucination. DIAGNOSTIC TESTS: - White blood cell count 2.5, hemoglobin 10.8, MCV 87.6, platelets 58. Urine: Makayla-colored, ketone positive, hyaline and granular cast positive. Chemistry: Sodium 139, potassium 4, anion gap 9, BUN 12, creatinine 0.79, calcium 7.7, ferritin 802 - elevated, albumin 2.8, LDL cholesterol 92, HDL 30.7, - low.Vitamin B12 307. Folate greater than 20, 54 normal. TSH elevated at 5.78. DIAGNOSTIC IMAGING STUDIES - Head CT scan with no acute intracranial abnormality, right-sided sphenoidal sinusitis. - CTA: Stable exam with 50% stenosis with right ICA and left ICA and VA are patent. Either atrophic or surgically absent right lobe of the thyroid. - Head CTA: Atherosclerotic plaque within the intracavernous ICA bilaterally. No hemodynamically significant stenosis. DIAGNOSTIC IMPRESSION 1. Vertigo/dizziness. 2. 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 4. Falls likely related to imbalance secondary to chronic alcohol use. 5. Chronic alcohol abuse. 6. Protein calorie malnutrition. 7. Pancytopenia PLAN 1. Neuro checks q. 4 hourly. 2. Neuro protocol. 3. Aspirin 81 mg daily. 4. The patient cannot do MRI. He has metal in his eye. 5. Cardiac echo. 6. Fall precautions. 7. PT/OT. Recommendations for balance and muscle strengthening exercises. Recommendations are appreciated. 8. Management of the metabolic and hematologic derangement by the attending team and consultants. 9. Telemetry. 10. DVT prophylaxis with SCDs. Thank you for the opportunity to participate in the care of this patient. MD CRAY Mata/PARISA /4:54 PM /5:22 AM MTDD
[2016-07-04] MEDS: MEGESTROL ACETATE 40 MG TAB PO SCH ×5 (05:50→23:51)
[2016-07-04 08:00] VITALS: BP 142/76; PULSE 60; RESP 16; TEMP 98.6; O2SAT 99
[2016-07-04] MEDS: THIAMINE HCL 100 MG TAB PO SCH (08:59)
[2016-07-04] MEDS: SODIUM CHLORIDE 0.9% FLUSH 10 ML FLUSH IV FLUSH SCH ×2 (08:59→20:13)
[2016-07-04] MEDS: FOLIC ACID 1 MG TAB PO SCH (08:59)
[2016-07-04] MEDS: MULTIVITAMINS/MINERALS THERAPEUTIC TAB PO SCH (08:59)
[2016-07-04 10:25] LABS: HEMATOCRIT 37.1 % (39.0-51.0); MEAN CELL VOLUME 88.5 FL (80.0-100.0); MEAN CORPUSCULAR HEMOGLOBIN 30.2 PG (27.0-34.0); MEAN CORPUSCULAR HGB CONC 34.1 % (32.0-36.0); PLATELET COUNT 79 TH/MM3 (150-450); RED BLOOD COUNT 4.19 MIL/MM3 (4.50-5.90); RED CELL DISTRIBUTION WIDTH 13.4 % (11.6-17.2); WHITE BLOOD COUNT 3.2 TH/MM3 (4.0-11.0)
[2016-07-04 10:34] LABS: POTASSIUM 3.4 MEQ/L (3.5-5.1)
[2016-07-04 10:37] LABS: BICARBONATE 25.7 MEQ/L (21.0-32.0)
[2016-07-04 10:40] LABS: REVIEW FLAG FINAL
--- NOTE | 2016-07-04 11:29 | HHI.PR ---
Subjective Remarks Patient states feels fine c/o generalized weakness denies repeat episode of slurred speech Objective Vitals Vital Signs Date Time Temp Pulse Resp B/P Pulse Ox O2 Delivery O2 Flow Rate FiO2 07/04/16 08:00 98.6 60 16 142/76 99 07/04/16 04:00 98.9 67 16 134/79 97 07/04/16 00:00 97.0 63 18 130/70 99 07/03/16 20:00 98.2 64 20 119/69 98 07/03/16 12:00 98.9 67 18 114/65 97 I/O 07/03/16 07/03/16 07/03/16 07/04/16 07/04/16 07/04/16 06:59 14:59 22:59 06:59 14:59 22:59 Intake Total 542 ml 390 ml 240 ml Output Total 500 ml 750 ml Balance 42 ml -360 ml 240 ml Intake Oral 0 ml 390 ml 240 ml IV Total 542 ml Output Urine Total 500 ml 750 ml # Voids 1 # Bowel Movements 0 0 0 Result Diagram: 07/04/16 1000 07/04/16 1000 Imaging Last Impressions Abdomen Ultrasound 07/03/16 0000 Signed Impressions: Service Date/Time: Sunday, July 03, 2016 09:14 - CONCLUSION: 1. Liver appears unremarkable. 2. Echogenic non-shadowing focus in the gallbladder neck likely representing gallstone. 3. Nonvisualized portions of the pancreas, aorta, inferior vena cava and left lobe of the liver. 4. Spleen is at the upper limits of normal in size. Dylan Alvarez MD Head CT 07/02/16 1436 Signed Impressions: Service Date/Time: Saturday, July 02, 2016 15:02 - CONCLUSION: 1. No acute intracranial abnormalities. Right-sided sphenoid sinusitis. Elmer Kiser MD Chest X-Ray 07/02/16 1436 Signed Impressions: Service Date/Time: Saturday, July 02, 2016 14:51 - CONCLUSION: No acute disease. Elmer Kiser MD Neck CTA 07/02/16 0000 Signed Impressions: Service Date/Time: Saturday, July 02, 2016 22:20 - CONCLUSION: 1. Stable exam with 50%% stenosis of the right ICA. Left ICA and vertebral arteries are patent. 2. Either atrophic or surgically absent right lobe of the thyroid. Steven Solomon Jr., MD Head CTA 07/02/16 0000 Signed Impressions: Service Date/Time: Saturday, July 02, 2016 22:20 - CONCLUSION: Atherosclerotic plaque within the intercavernous ICAs bilaterally. No hemodynamically significant stenosis. Steven Solomon Jr., MD Objective Remarks GENERAL: This is a well-nourished, well-developed patient, in no apparent distress. SKIN: Warm and dry. Dry skin noted to the legs and feet. Abrasion at the right knee. Surgical scars to abdomen. HEAD: Atraumatic. Normocephalic. EYES: Pupils equal round and reactive. Extraocular motions intact. No scleral icterus. No injection or drainage. ENT: Uvula midline. Airway patent. NECK: Trachea midline. No lymphadenopathy. CARDIOVASCULAR: Regular rate and rhythm without murmurs, gallops, or rubs. RESPIRATORY: Clear to auscultation. Breath sounds equal bilaterally. No wheezes , rales, or rhonchi. GASTROINTESTINAL: Abdomen soft, non-tender, nondistended. No hepato-splenomegaly , or palpable masses. No guarding. MUSCULOSKELETAL: No axillary lymphadenopathy. No lower extremity edema bilaterally. NEUROLOGICAL: Awake and alert. No obvious cranial nerve deficits. Motor grossly within normal limits. Five out of 5 muscle strength in bilateral arms and legs. Normal speech. Medications and IVs Current Medications Medications (Trade) Dose Ordered Sig/Uzair Route Start Time Stop Time Status Last Admin (NS Flush) 2 ml UNSCH PRN IV FLUSH 07/02/16 17:15 (NS Flush) 2 ml BID IV FLUSH 07/02/16 21:00 07/04/16 08:59 (Ecotrin Ec) 81 mg DAILY PO 07/03/16 09:00 Hold 07/03/16 10:28 (Megace) 100 mg Q6HR PO 07/02/16 18:00 07/04/16 05:50 (Folate) 1 mg DAILY PO 07/03/16 09:00 07/04/16 08:59 (Vitamin B1) 100 mg DAILY PO 07/03/16 09:00 07/04/16 08:59 (Theragran M Tab) 1 tab DAILY PO 07/03/16 09:00 07/08/16 08:59 07/04/16 08:59 Urinary Catheter: No Vascular Central Line Catheter: No A/P Problem List: (1) TIA (transient ischemic attack) ICD Code: G45.9 Status: Acute (2) Pancytopenia ICD Code: D61.818 Status: Acute (3) Protein-calorie malnutrition, moderate ICD Code: E44.0 Status: Acute (4) Frequent falls ICD Code: R29.6 Status: Acute (5) Alcohol abuse ICD Code: F10.10 Status: Acute (6) Hypothyroidism ICD Code: E03.9 Status: Acute Assessment and Plan (1) TIA (transient ischemic attack) Plan: 75-year-old male presents with dizziness and frequent falls with slurred speech the night prior to presentation to the hospital. The patient denies drinking alcohol in a week although he has history of alcohol abuse. Patient also has history of hypertension hyperlipidemia but is currently not on medications as he stays discontinued them due to possible allergy. Patient is to take aspirin, lisinopril and a statin. Patient has history of multiple TIAs. Symptoms have completely resolved when patient already seen in emergency department. Patient was given aspirin 325 mg in the emergency department. Patient then placed for outpatient observation in the medical floor. CT of the brain was reviewed by me show any evidence of acute intracranial abnormality aside from right sphenoid sinusitis. EKG shows sinus rhythm with a ventricular rate of 66 bpm and anteroseptal T- wave changes which are nonspecific. Patient is unable to undergo MRI due to metal in his eye. Head CTA ordered and showed atherosclerotic plaque within the intercavernous ICAs bilaterally but no hemodynamically significant stenosis. Neck CTA shows 50% stenosis of the right ICA. Left ICA and vertebral arteries are patent. Either atrophic or surgically absent right lobe of thyroid. Continue to monitor on telemetry, continue to monitor neuro checks which have been stable Hold daily baby aspirin in preparation for bone marrow biopsy Neurology consultation appreciated - continue aspirin 81 mg daily (hold for bone marrow biopsy), neurocheck Q 4 hrs 2-D echocardiogram showed normal systolic function with an EF of 55-60%, no regional wall motion abnormalities. Trivial recurrent effusion, no findings consistent with tamponade physiology. (2) Pancytopenia Plan: Pancytopenia is chronic. Patient previously pancytopenia, 1 year ago. Upon review of records hematology evaluation was obtained however patient declined any further workup. Abdominal ultrasound ordered and shows unremarkable liver. Gallstones present. No visualized portion of the pancreas, aorta and inferior vena cava and left lobe of the liver. Spleen is at the upper limits of normal in size. Hematology consulted. Bone marrow biopsy has been ordered to be done by invasive radiology. (3) Protein-calorie malnutrition, moderate Plan: Patient with low at 2.8. BMI of 19.5. 20% usual weight. Patient admits to low appetite and reported 50 pound weight loss by daughter. Continue Megace Dietitian consulted. Ensure with meals Monitor magnesium and BMP. (4) Frequent falls Plan: PT evaluation B12 and folate within normal levels. Vitamin D slightly decreased. (5) Alcohol abuse Plan: Patient drinks a sixpack per week. Patient prior to this when the last couple of years is drinking 6 pack per day. Patient hasn't had alcohol in one week. Continue folic acid, continue multivitamins and thiamine. (6) Hypothyroidism Plan: Patient has history of partial thyroidectomy. TSH is elevated at 5.780, however free T4 normal at 1.29.. . DVT prophylaxis: Continue SCDs, no chemoprophylaxis due to thrombocytopenia. Problem Qualifiers (1) TIA (transient ischemic attack): Qualified Code: G45.9 - Transient cerebral ischemia, unspecified type (2) Hypothyroidism: Qualified Code: E89.0 - Postoperative hypothyroidism Triston Jones MD July 04, 2016 11:29
[2016-07-04 12:00] VITALS: BP 119/63; PULSE 61; RESP 20; TEMP 99.7; O2SAT 97
[2016-07-04 16:00] VITALS: BP 123/73; PULSE 61; RESP 20; TEMP 98.6; O2SAT 98
--- NOTE | 2016-07-04 17:24 | PD.ONC.PN ---
Subjective Subjective Remarks Speech normal, no recurrent event. Questions regarding need for bone marrow. 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 Objective Data Date Time Temp Pulse Resp B/P Pulse Ox O2 Delivery O2 Flow Rate FiO2 07/04/16 16:00 98.6 61 20 123/73 98 07/04/16 12:00 99.7 61 20 119/63 97 07/04/16 08:00 98.6 60 16 142/76 99 07/04/16 04:00 98.9 67 16 134/79 97 07/04/16 00:00 97.0 63 18 130/70 99 07/03/16 20:00 98.2 64 20 119/69 98 07/04/16 07/04/16 07/04/16 07:00 15:00 23:00 Intake Total 240 ml 720 ml Output Total 350 ml Balance 240 ml 370 ml Result Diagram: 07/04/16 1000 07/04/16 1000 Laboratory Results Laboratory Tests Test 07/04/16 10:00 White Blood Count 3.2 TH/MM3 Red Blood Count 4.19 MIL/MM3 Hemoglobin 12.6 GM/DL Hematocrit 37.1 % Mean Corpuscular Volume 88.5 FL Mean Corpuscular Hemoglobin 30.2 PG Mean Corpuscular Hemoglobin 34.1 % Concent Red Cell Distribution Width 13.4 % Platelet Count 79 TH/MM3 Mean Platelet Volume 11.4 FL Sodium Level 138 MEQ/L Potassium Level 3.4 MEQ/L Chloride Level 102 MEQ/L Carbon Dioxide Level 25.7 MEQ/L Anion Gap 10 MEQ/L Blood Urea Nitrogen 11 MG/DL Creatinine 0.98 MG/DL Estimat Glomerular Filtration 75 ML/MIN Rate Random Glucose 101 MG/DL Calcium Level 8.5 MG/DL Administered Medications Medications (Trade) Dose Ordered Sig/Uzair Route PRN Reason Start Time Stop Time Status Last Admin Dose Admin Sodium Chloride (NS Flush) 2 ml BID IV FLUSH 07/02/16 21:00 07/04/16 08:59 Aspirin (Ecotrin Ec) 81 mg DAILY PO 07/03/16 09:00 Hold 07/03/16 10:28 Megestrol Acetate (Megace) 100 mg Q6HR PO 07/02/16 18:00 07/04/16 13:15 Folic Acid (Folate) 1 mg DAILY PO 07/03/16 09:00 07/04/16 08:59 Thiamine HCl (Vitamin B1) 100 mg DAILY PO 07/03/16 09:00 07/04/16 08:59 Multivitamins/ Minerals Therapeutic (Theragran M Tab) 1 tab DAILY PO 07/03/16 09:00 07/08/16 08:59 07/04/16 08:59 Objective Remarks GENERAL: Well-nourished, well-developed patient. SKIN: Warm and dry. HEAD: Normocephalic. EYES: No scleral icterus. No injection or drainage. NECK: Supple, trachea midline. No JVD or lymphadenopathy. LYMPHATIC: No adenopathy. CARDIOVASCULAR: Regular rate and rhythm without murmurs. RESPIRATORY: Breath sounds equal bilaterally. No accessory muscle use. GASTROINTESTINAL: Abdomen soft, non-tender, nondistended. EXTREMITIES: No cyanosis, or edema. MUSCULOSKELETAL: Adequate muscle tone. NEUROLOGICAL: No obvious focal deficit. Awake, alert, and oriented x3. PSYCHIATRIC: Appropriate mood and affect; insight and judgment normal. Assessment/Plan Problem List: (1) TIA (transient ischemic attack) Status: Acute Plan: Resolved. Speech fluent. (2) Pancytopenia Status: Chronic Plan: Discussed the laboratory findings. Pancytopenia chronic. Discussed rationale for bone marrow biopsy to r/o bone marrow disorder causing cytopenia. Noted US liver normal however, spleen in ULN- ? MF vs. hypersplenism. Pending bone marrow biopsy by IR. If DC tomorrow, plan to coordinate biopsy as out pt. Noted platelet increase, hgb stable, WBC improve. Assessment 75 y/o man with ?TIA associated w/ pancytopenia. Plan 1. OK to DC from heme/onc perspective 2. BM bx by IR if still here otherwise can do on out patient basis, pancytopenia was chronic 3. No treatment for pancytopenia 4. ASA OK platelet >50K 5. FU w/ Dr. Alarcon upon DC. Problem Qualifiers (1) TIA (transient ischemic attack): Qualified Code: G45.9 - Transient cerebral ischemia, unspecified type Kasey Prasad MD July 04, 2016 17:24
[2016-07-04 20:00] VITALS: BP 102/60; PULSE 67; RESP 20; TEMP 98.6; O2SAT 98
[2016-07-05] VITALS: BP 104/72; PULSE 73; RESP 16; TEMP 98.3; O2SAT 98
[2016-07-05 04:00] VITALS: BP 105/62; PULSE 68; RESP 18; TEMP 98.4; O2SAT 98
[2016-07-05] MEDS: MEGESTROL ACETATE 40 MG TAB PO SCH ×2 (05:01→12:00)
[2016-07-05 08:58] VITALS: BP 129/71; PULSE 66; RESP 15; TEMP 98.2; O2SAT 97
[2016-07-05] MEDS: FOLIC ACID 1 MG TAB PO SCH (09:13)
[2016-07-05] MEDS: MULTIVITAMINS/MINERALS THERAPEUTIC TAB PO SCH (09:13)
[2016-07-05] MEDS: THIAMINE HCL 100 MG TAB PO SCH (09:13)
[2016-07-05] MEDS: SODIUM CHLORIDE 0.9% FLUSH 10 ML FLUSH IV FLUSH SCH (09:13)
[2016-07-05 12:12] VITALS: BP 107/58; PULSE 64; RESP 15; TEMP 98.5; O2SAT 99
[2016-07-05] MEDS ORDERED: THERM PO (14:54)
[2016-07-05] MEDS ORDERED: ASPI81TA11 PO (14:54)
[2016-07-05] MEDS ORDERED: VITA100T2 PO (14:54)
[2016-07-05] MEDS ORDERED: FOLI1TAB4 PO (14:54)
[2016-07-05] MEDS ORDERED: MEGE40S PO (14:54)
--- NOTE | 2016-07-05 14:55 | HHI.DCPOC ---
Discharge Care Plan Diagnosis: (1) Pancytopenia (2) Hypothyroidism (3) Frequent falls (4) Protein-calorie malnutrition, moderate (5) TIA (transient ischemic attack) Goals to Promote Your Health * To prevent worsening of your condition and complications * To maintain your health at the optimal level Directions to Meet Your Goals Take your medications as prescribed Follow your dietary instruction Follow activity as directed Keep your appointments as scheduled Take your immunizations and boosters as scheduled If your symptoms worsen call your PCP, if no PCP go to Urgent Care Center or Emergency Room Smoking is Dangerous to Your Health. Avoid second hand smoke Call the 24-hour hour crisis hotline for domestic abuse at Triston Jones MD July 05, 2016 14:55
--- NOTE | 2016-07-05 14:59 | HHI.DS ---
Discharge Summary Admission Date July 02, 2016 at 16:07 Discharge Date: July 05, 2016 Admitting Diagnosis TIA (1) TIA (transient ischemic attack) ICD Code: G45.9 Diagnosis: Principal (2) Pancytopenia ICD Code: D61.818 Diagnosis: Principal (3) Protein-calorie malnutrition, moderate ICD Code: E44.0 Diagnosis: Principal (4) Frequent falls ICD Code: R29.6 Diagnosis: Principal (5) Alcohol abuse ICD Code: F10.10 Diagnosis: Principal (6) Hypothyroidism ICD Code: E03.9 Diagnosis: Principal Procedures none Brief History - From Admission 75-year-old male with history of TIA, hyperlipidemia, hypertension, thyroid disease, and alcohol abuse presents with complaint of dizziness. Admitted fot TIA, also pancytopenic. The patient himself has a hard time remembering why he came in. His daughter is at bedside and assists with history. She states he has been falling and hasn't been eating or drinking much. The patient admits to low appetite. Apparently the patient has been dizzy on and off for 2 weeks and he's had a couple falls. His daughter states that he used to be 175-180 pounds in December and has lost 40-50 pounds since then. She states last night she went to take him to dinner and he was having some slurred speech intermittently and was stumbling. She states he told her he hadn't eaten in 2-3 days and his hands were shaking when he tried to drink anything. He admits to some heaviness in his right arm compared to the left but denies any focal leg weakness. Denies any numbness. Eyes any diplopia. He denies any fevers or chills or night sweats. Denies any abdominal pain, nausea, vomiting, or diarrhea. Patient also states he hasn't itchy rash to his legs and back and has moisturized without relief. the patient was admitted to [place] approximately one year ago for dizziness and was evaluated by neurology at that time. 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 He was also evaluated by hematology for pancytopenia at that time but he declined further workup and had signed out AMA per the EMR. The patient's daughter states patient had a stroke in 2003 but according to the EMR the patient had left-sided weakness which was attributed to TIA; there was no actual infarct seen on imaging upon my review. CBC/BMP: 07/04/16 1000 07/04/16 1000 Significant Findings Laboratory Tests Test 07/03/16 07/03/16 07/04/16 04:00 06:55 10:00 Urine Color TALI (YELLW/STRAW) Urine Specific [place] GREATER THAN 1.035 (1.002-1.035) Urine Ketones 15 mg/dL (NEG) Urine Hyaline Casts 10-14 /lpf (RARE) Urine Mucus FEW /lpf (OCC) White Blood Count 2.5 TH/MM3 3.2 TH/MM3 (4.0-11.0) (4.0-11.0) Red Blood Count 3.61 MIL/MM3 4.19 MIL/MM3 (4.50-5.90) (4.50-5.90) Hemoglobin 10.8 GM/DL 12.6 GM/DL (13.0-17.0) (13.0-17.0) Hematocrit 31.6 % 37.1 % (39.0-51.0) (39.0-51.0) Platelet Count 58 TH/MM3 79 TH/MM3 (150-450) (150-450) Monocytes (%) (Auto) 10.3 % (0.0-8.0) Eosinophils (%) (Auto) 7.0 % (0.0-4.0) Basophils (%) (Auto) 3.4 % (0.0-2.0) Neutrophils # (Auto) 1.2 TH/MM3 (1.8-7.7) Lymphocytes # (Auto) 0.7 TH/MM3 (1.0-4.8) Platelet Estimate LOW (NORMAL) Ovalocytes 2+ (NORMAL) Calcium Level 7.7 MG/DL (8.5-10.1) Ferritin 802 NG/ML (26-388) HDL Cholesterol 30.7 MG/DL (40.0-60.0) Mean Platelet Volume 11.4 FL (7.0-11.0) Potassium Level 3.4 MEQ/L (3.5-5.1) Estimat Glomerular Filtration 75 ML/MIN (>89) Rate Imaging Last Impressions Abdomen Ultrasound 07/03/16 0000 Signed Impressions: Service Date/Time: Sunday, July 03, 2016 09:14 - CONCLUSION: 1. Liver appears unremarkable. 2. Echogenic non-shadowing focus in the gallbladder neck likely representing gallstone. 3. Nonvisualized portions of the pancreas, aorta, inferior vena cava and left lobe of the liver. 4. Spleen is at the upper limits of normal in size. Dylan Alvarez MD Head CT 07/02/16 1436 Signed Impressions: Service Date/Time: Saturday, July 02, 2016 15:02 - CONCLUSION: 1. No acute intracranial abnormalities. Right-sided sphenoid sinusitis. Elmer Kiser MD Chest X-Ray 07/02/16 1436 Signed Impressions: Service Date/Time: Saturday, July 02, 2016 14:51 - CONCLUSION: No acute disease. Elmer Kiser MD Neck CTA 07/02/16 0000 Signed Impressions: Service Date/Time: Saturday, July 02, 2016 22:20 - CONCLUSION: 1. Stable exam with 50%% stenosis of the right ICA. Left ICA and vertebral arteries are patent. 2. Either atrophic or surgically absent right lobe of the thyroid. Steven Solomon Jr., MD Head CTA 07/02/16 0000 Signed Impressions: Service Date/Time: Saturday, July 02, 2016 22:20 - CONCLUSION: Atherosclerotic plaque within the intercavernous ICAs bilaterally. No hemodynamically significant stenosis. Steven Solomon Jr., MD PE at Discharge GENERAL: This is a well-nourished, well-developed patient, in no apparent distress. SKIN: Warm and dry. Dry skin noted to the legs and feet. Abrasion at the right knee. Surgical scars to abdomen. HEAD: Atraumatic. Normocephalic. EYES: Pupils equal round and reactive. Extraocular motions intact. No scleral icterus. No injection or drainage. ENT: Uvula midline. Airway patent. NECK: Trachea midline. No lymphadenopathy. CARDIOVASCULAR: Regular rate and rhythm without murmurs, gallops, or rubs. RESPIRATORY: Clear to auscultation. Breath sounds equal bilaterally. No wheezes , rales, or rhonchi. GASTROINTESTINAL: Abdomen soft, non-tender, nondistended. No hepato-splenomegaly , or palpable masses. No guarding. MUSCULOSKELETAL: No axillary lymphadenopathy. No lower extremity edema bilaterally. NEUROLOGICAL: Awake and alert. No obvious cranial nerve deficits. Motor grossly within normal limits. Five out of 5 muscle strength in bilateral arms and legs. Normal speech. Hospital Course (1) TIA (transient ischemic attack) 75-year-old male presents with dizziness and frequent falls with slurred speech the night prior to presentation to the hospital. The patient denies drinking alcohol in a week although he has history of alcohol abuse. Patient also has history of hypertension hyperlipidemia but is currently not on medications as he stays discontinued them due to possible allergy. Patient is to take aspirin , lisinopril and a statin. Patient has history of multiple TIAs. Symptoms have completely resolved when patient already seen in emergency department. Patient was given aspirin 325 mg in the emergency department. Patient then placed for outpatient observation in the medical floor. CT of the brain was reviewed by me show any evidence of acute intracranial abnormality aside from right sphenoid sinusitis. EKG shows sinus rhythm with a ventricular rate of 66 bpm and anteroseptal T- wave changes which are nonspecific. Patient is unable to undergo MRI due to metal in his eye. Head CTA ordered and showed atherosclerotic plaque within the intercavernous ICAs bilaterally but no hemodynamically significant stenosis. Neck CTA shows 50% stenosis of the right ICA. Left ICA and vertebral arteries are patent. Either atrophic or surgically absent right lobe of thyroid. Continue to monitor on telemetry, continue to monitor neuro checks which have been stable Hold daily baby aspirin in preparation for bone marrow biopsy Neurology consultation appreciated - continue aspirin 81 mg daily (hold for bone marrow biopsy), neurocheck Q 4 hrs 2-D echocardiogram showed normal systolic function with an EF of 55-60%, no regional wall motion abnormalities. Trivial recurrent effusion, no findings consistent with tamponade physiology. (2) Pancytopenia Pancytopenia is chronic. Patient previously pancytopenia, 1 year ago. Upon review of records hematology evaluation was obtained however patient declined any further workup. Abdominal ultrasound ordered and shows unremarkable liver. Gallstones present. No visualized portion of the pancreas, aorta and inferior vena cava and left lobe of the liver. Spleen is at the upper limits of normal in size. Hematology consulted. Recommended bone marrow biopsy as an outpatient. (3) Protein-calorie malnutrition, moderate Patient with low at 2.8. BMI of 19.5. 20% usual weight. Patient admits to low appetite and reported 50 pound weight loss by daughter. Continue Megace Dietitian consulted. Ensure with meals Monitor magnesium and BMP. (4) Frequent falls PT evaluation B12 and folate within normal levels. Vitamin D slightly decreased. (5) Alcohol abuse Patient drinks a sixpack per week. Patient prior to this when the last couple of years is drinking 6 pack per day. Patient hasn't had alcohol in one week. Continue folic acid, continue multivitamins and thiamine. (6) Hypothyroidism Patient has history of partial thyroidectomy. TSH is elevated at 5.780, however free T4 normal at 1.29.. . DVT prophylaxis: Continue SCDs, no chemoprophylaxis due to thrombocytopenia. Pt Condition on Discharge: Stable Discharge Disposition: Disch w/ Home Health Serv Discharge Time: > 30 minutes Discharge Instructions DIET: Follow Instructions for: Heart Healthy Diet Additional Diet Instructions: ensure with meals Activities you can perform: Regular-No Restrictions Activities to Avoid: Prolonged Standing, Strenuous Activity Follow up Referrals: Appointment for Follow Up - 1 Week with Kasey Prasad MD PCP Follow-up - 1 Week New Medications: Megestrol Liq (Megace Liq) 40 Mg/Ml Susp 400 MG PO DAILY Improve Appetite #[address] (Aspirin EC) 81 Mg Tabdr 81 MG PO DAILY Blood Clot Prevention #31 TAB Folic Acid (Folate) 1 Mg Tab 1 MG PO DAILY Alcohol Detox #31 TAB Multiple Vitamins W/ Minerals (Thera M Plus) 1 Tab 1 TAB PO DAILY malnutrition #31 TAB Thiamine (Vitamin B-1) 100 Mg Tab 100 MG PO DAILY Alcohol Detox #31 TAB Continued Medications: Cetirizine (Zyrtec Allergy) 10 Mg Cap 10 MG PO DAILY Allergies Ref 0 CAP Discontinued Medications: Folic Acid (Folate) 1 Mg Tab 1 MG DAILY Triston Jones MD July 05, 2016 14:59
--- NOTE | 2016-07-05 15:31 | HHI.FF ---
Face to Face Verification Diagnosis: (1) Frequent falls (2) Protein-calorie malnutrition, moderate (3) Pancytopenia (4) TIA (transient ischemic attack) (5) Hypothyroidism Physical Therapy Order: Improve ambulation, Strength and gait training I have seen patient Viktor Pathak on 07/05/16. My clinical findings support the need for the requested home health care services because: Med compliance is questionable Need for psychosocial assistance Impaired cognition/judgement High risk of falls I certify that my clinical findings support that this patient is homebound because: Impaired cognitive ability/safety Unsafe to leave home unassisted Need for psychosocial assistance Unable to use public transportation Triston Jones MD July 05, 2016 15:31
== END 2016-07-05 17:30 | disposition home or self-care (01) ==
LOC: PHED 14:02 → PHEDA 16:07 → PH3A 17:44
PROVIDERS: ADMIT Family Medicine; ATTEND Family Medicine
DX: G45.9 Transient cerebral ischemic attack, unspecified (principal); I65.21 Occlusion and stenosis of right carotid artery; D61.818 Other pancytopenia; E44.0 Moderate protein-calorie malnutrition; R29.6 Repeated falls; F10.10 Alcohol abuse, uncomplicated; G31.2 Degeneration of nervous system due to alcohol; E89.0 Postprocedural hypothyroidism; E78.5 Hyperlipidemia, unspecified; I10 Essential (primary) hypertension; L29.9 Pruritus, unspecified; L85.3 Xerosis cutis; Z90.49 Acquired absence of other specified parts of digestive tract; Z88.8 Allergy status to other drugs, medicaments and biological substances; Z87.891 Personal history of nicotine dependence; Z86.73 Personal history of transient ischemic attack (TIA), and cerebral infarction without residual deficits; Z68.1 Body mass index [BMI] 19.9 or less, adult
CPT/HCPCS: 70450; 70496; 70498; 71010; 76700; 80048; 80053; 80061; 81001; 82306; 82607; 82728; 82746; 83735; 84439; 84443; 85025; 85027; 85610; 85730; 93005; 93306; 97110; 97116; 97162; 99285; G0378; G8987; G8988; J3420; J7030; Q9967

== ENCOUNTER 2016-07-19 15:49 | Inpatient (IN) | payer OTHER ==
[~2016-07-19] VITALS: Ht 180.3 cm; Wt 60.6 kg
[2016-07-19] VITALS (7 sets, daily range): BP systolic 103–175; BP diastolic 66–85; PULSE 57–77; RESP 15–20; TEMP 96–98.9; O2SAT 96–99
[~2016-07-19 15:49] MED LIST changes: -1-ME1LIQ PO; -ASPI325T; +ASPI81TA11 PO; -CIAL5TAB PO; -FOLI1TAB; +FOLI1TAB4 PO; -IRON325T2 PO; -LEVO50TA4 PO; -LISI-360 PO; +MEGE40S PO; -PRAV20 PO; +THERM PO; +VITA100T2 PO; +ZYRT10CA PO
[2016-07-19] MEDS ORDERED: SODIUM CHLOR 0.9% 1000 ML INJ 1,000 ML IV ONE (17:22)
[2016-07-19] MEDS ORDERED: MECLIZINE HCL 25 MG TAB PO ONE (17:30)
[2016-07-19] MEDS ORDERED: SODIUM CHLORIDE 0.9% FLUSH 10 ML FLUSH IVF PRN (17:30)
[2016-07-19] MEDS ORDERED: ASPI1TAB69 PO (17:35)
--- NOTE | 2016-07-19 17:59 | RADHPO ---
EXAM DATE/TIME: 07/19/2016 17:37 [facility] COMPARISON: CHEST SINGLE AP, July 02, 2016, 14:51. INDICATIONS : Dizziness, shortness of breath for 1 week MEDICAL HISTORY : Chronic obstructive pulmonary disease. Stroke. Hypertension SURGICAL HISTORY : None. ENCOUNTER: Initial ACUITY: 1 week PAIN SCORE: 0/10 LOCATION: Bilateral chest FINDINGS: A single view of the chest demonstrates the lungs to be symmetrically aerated without evidence of mas s, infiltrate or effusion. The cardiomediastinal contours are unremarkable. Osseous structures are intact. Aortic calcification. CONCLUSION: No acute disease. Tyshawn Brooke MD on July 19, 2016 at 17:58 Board Certified Radiologist. This report was verified electronically.
--- NOTE | 2016-07-19 17:59 | RADHPO ---
EXAM DATE/TIME: 07/19/2016 17:38 [facility] COMPARISON: CT BRAIN W/O CONTRAST, July 02, 2016, 15:02. INDICATIONS : Syncopal episode, dizziness. RADIATION DOSE: 64.50 CTDIvol (mGy) MEDICAL HISTORY : Cerebrovascular disease. Hypertension. SURGICAL HISTORY : None. ENCOUNTER: Initial ACUITY: 3 days PAIN SCALE: 0/10 LOCATION: cranial TECHNIQUE: Multiple contiguous axial images were obtained of the head. Using automated exposure control and adj ustment of the mA and/or kV according to patient size, radiation dose was kept as low as reasonably a chievable to obtain optimal diagnostic quality images. FINDINGS: Improved aeration of the right sphenoid sinus with residual secretions noted. No fractures are identi fied. There is mild volume loss. No evidence of intracranial hemorrhage, infarct, or mass. CONCLUSION: Improved aeration of the right sphenoid sinus. Normal appearance of the brain for age. Tyshawn Brooke MD on July 19, 2016 at 17:57 Board Certified Radiologist. This report was verified electronically.
[2016-07-19 18:09] LABS: BASOPHIL % 0.2 % (0.0-2.0); EOSINOPHIL # 0.2 TH/MM3 (0-0.4); EOSINOPHIL % 4.5 % (0.0-4.0); HEMATOCRIT 34.3 % (39.0-51.0); LYMPH % 9.6 % (9.0-44.0); LYMPHOCYTE # 0.4 TH/MM3 (1.0-4.8); MEAN CELL VOLUME 87.8 FL (80.0-100.0); MEAN CORPUSCULAR HEMOGLOBIN 29.4 PG (27.0-34.0); MEAN CORPUSCULAR HGB CONC 33.5 % (32.0-36.0); MONO % 7.7 % (0.0-8.0); PLATELET COUNT 72 TH/MM3 (150-450); RED BLOOD COUNT 3.91 MIL/MM3 (4.50-5.90); RED CELL DISTRIBUTION WIDTH 13.2 % (11.6-17.2); WHITE BLOOD COUNT 3.9 TH/MM3 (4.0-11.0)
[2016-07-19 18:13] LABS: HEMO FLAGS AUTO DIFF
[2016-07-19 18:18] LABS: CHLORIDE 103 MEQ/L (98-107); POTASSIUM 3.7 MEQ/L (3.5-5.1); SODIUM (NA) 137 MEQ/L (136-145)
[2016-07-19 18:22] LABS: ANION GAP 11 MEQ/L (5-15); APTT (PATIENT) 30.1 SEC (24.3-30.1); BLOOD UREA NITROGEN 26 MG/DL (7-18); INTERNATIONAL NORMALIZED RATIO 0.9 RATIO; PROTHROMBIN TIME - PATIENT 9.9 SEC (9.8-11.6)
[2016-07-19 18:25] LABS: ALT (GPT) 24 U/L (12-78); AST (GOT) 27 U/L (15-37); GLOMERULAR FILTRATION RATE 40 ML/MIN (>89)
[2016-07-19 18:27] LABS: TOTAL BILIRUBIN ADULT 0.7 MG/DL (0.2-1.0)
[2016-07-19 18:28] LABS: ALKALINE PHOSPHATASE 72 U/L (45-117)
[2016-07-19 18:29] LABS: CREATINE KINASE 21 U/L (39-308)
[2016-07-19 18:38] LABS: OVALOCYTES 1+ (NORMAL); PLATELET ESTIMATE SMEAR LOW (NORMAL); PLATELET MORPHOLOGY NORMAL (NORMAL); SCAN/DIFF AUTO DIFF CONFIRMED
[2016-07-19] MEDS ORDERED: AMPICILLIN-SULBACTAM INJ 1,500 MG in SODIUM CHLORIDE 0.9% INJ 100 ML IV ONE (19:15)
--- NOTE | 2016-07-19 19:20 | PD ---
HPI Chief Complaint: Dizziness Time Seen by Provider: 17:22 Travel History International Travel<30 days: No Contact w/Intl Traveler<30days: No Traveled to known affect area: No History of Present Illness HPI Patient is a 75 year old male who comes in complaining of dizziness and passing out. He was here 2 weeks ago and had a stroke workup and was discharged home. He was also revealed during this admission that he had not been eating very well. He states he still is not eating. He reports only eating an apple between yesterday and today. He says he just does not want to cook, he doesn't have the energy and he feels dizzy. He says he fell twice yesterday and hit his head. He also says that he bumped his knee and now looks infected. He has not had any fever or chills. He has not had any chest pain or shortness of breath. PFSH Past Medical History Arthritis: No Asthma: No Heart Rhythm Problems: No Cardiovascular Problems: Yes High Cholesterol: Yes Chest Pain: No COPD: No Cerebrovascular Accident: Yes Diabetes: No Diminished Hearing: No Diverticulitis: Yes Endocrine: Yes GERD: No Glaucoma: No Headaches: No Hepatitis: No Hiatal Hernia: No Hypertension: Yes Immune Disorder: No Kidney Stones: No Musculoskeletal: No Neurologic: No Psychiatric: No Respiratory: No Immunizations Current: Yes Renal Failure: No Seizures: No Sleep Apnea: No Thyroid Disease: Yes Ulcer: No ?: Not Past Surgical History Abdominal Surgery: Yes (BOWEL RESECTION X 2 FOR DIVERTICULITIS 1981 2006) AICD: No Appendectomy: Yes Cardiac Surgery: No Endocrine Surgery: No Genitourinary Surgery: No Gynecologic Surgery: No Neurologic Surgery: Yes (STROKE:TIA) Pacemaker: No Thoracic Surgery: No Other Surgery: Yes (PARTIAL THYROIDECTOMY) Social History Alcohol Use: Yes (12 PACK PER WEEK) Tobacco Use: No Substance Use: No Allergies-Medications (Allergen,Severity, Reaction): Coded Allergies: MRI PRECAUTION (Verified Adverse Reaction, Severe, METAL IN LEFT EYE (RBN ) 10/16/06, 07/19/16) Reported Meds & Prescriptions Reported Meds & Active Scripts Active Reported Aspirin 81 Mg Tabdr 81 Mg PO DAILY Review of Systems Except as stated in HPI: all other systems reviewed are Neg General / Constitutional: No: Fever, Chills Eyes: No: Blurred Vision HENT: Positive: Lightheadedness, No: Headaches Cardiovascular: No: Chest Pain or Discomfort Respiratory: No: Shortness of Breath Gastrointestinal: No: Nausea, Vomiting Musculoskeletal: Positive: Weakness Skin: Positive Lesions Neurologic: Positive: Weakness, Dizziness Physical Exam Narrative GENERAL: Awake and alert, no acute distress. SKIN: Focused skin assessment warm/dry. 2 cm area of erythema just proximal to the left knee. No fluctuance. No drainage. HEAD: Atraumatic. Normocephalic. EYES: Pupils equal and round. No scleral icterus. Extraocular movements intact. ENT: Mucous membranes pink and moist. NECK: Trachea midline. No JVD. CARDIOVASCULAR: Regular rate and rhythm. No murmur appreciated. RESPIRATORY: No accessory muscle use. Clear to auscultation. Breath sounds equal bilaterally. GASTROINTESTINAL: Abdomen soft, non-tender, nondistended. MUSCULOSKELETAL: No obvious deformities. No clubbing. No cyanosis. No edema. NEUROLOGICAL: Awake and alert. No obvious cranial nerve deficits. Motor grossly within normal limits. Normal speech. PSYCHIATRIC: Appropriate mood and affect; insight and judgment normal. Data Data Last Documented VS Vital Signs Date Time Temp Pulse Resp B/P Pulse Ox O2 Delivery O2 Flow Rate FiO2 07/19/16 19:07 98.9 62 18 153/70 99 Room Air Orders Electrocardiogram (07/19/16 17:22) Complete Blood Count With Diff (07/19/16 17:22) Comprehensive Metabolic Panel (07/19/16 17:22) Ckmb (Isoenzyme) Profile (07/19/16 17:22) Troponin I (07/19/16 17:22) Act Partial Throm Time (Ptt) (07/19/16 17:22) Prothrombin Time / Inr (Pt) (07/19/16 17:22) Urinalysis - C+S If Indicated (07/19/16 17:22) Ua Includes Microscopic (07/19/16 17:22) Chest, Single Ap (07/19/16 17:22) Ct Brain W/O Iv Contrast(Rout) (07/19/16 17:22) Ecg Monitoring (07/19/16 17:22) Iv Access Insert/Monitor (07/19/16 17:22) Oximetry (07/19/16 17:22) Meclizine (Antivert) (07/19/16 17:30) Sodium Chloride 0.9% Flush (Ns Flush) (07/19/16 17:30) Sodium Chlor 0.9% 1000 Ml Inj (Ns 1000 M (07/19/16 17:22) Ampicillin-Sulbactam Inj (Unasyn Inj) (07/19/16 19:15) Admit Order (Ed Use Only) (07/19/16 ) Labs Laboratory Tests Test 07/19/16 17:55 White Blood Count 3.9 TH/MM3 Red Blood Count 3.91 MIL/MM3 Hemoglobin 11.5 GM/DL Hematocrit 34.3 % Mean Corpuscular Volume 87.8 FL Mean Corpuscular Hemoglobin 29.4 PG Mean Corpuscular Hemoglobin 33.5 % Concent Red Cell Distribution Width 13.2 % Platelet Count 72 TH/MM3 Mean Platelet Volume 9.7 FL Neutrophils (%) (Auto) 78.0 % Lymphocytes (%) (Auto) 9.6 % Monocytes (%) (Auto) 7.7 % Eosinophils (%) (Auto) 4.5 % Basophils (%) (Auto) 0.2 % Neutrophils # (Auto) 3.0 TH/MM3 Lymphocytes # (Auto) 0.4 TH/MM3 Monocytes # (Auto) 0.3 TH/MM3 Eosinophils # (Auto) 0.2 TH/MM3 Basophils # (Auto) 0.0 TH/MM3 CBC Comment AUTO DIFF Differential Comment AUTO DIFF CONFIRMED Platelet Estimate LOW Platelet Morphology Comment NORMAL Ovalocytes 1+ Prothrombin Time 9.9 SEC Prothromb Time International 0.9 RATIO Ratio Activated Partial 30.1 SEC Thromboplast Time Sodium Level 137 MEQ/L Potassium Level 3.7 MEQ/L Chloride Level 103 MEQ/L Carbon Dioxide Level 23.0 MEQ/L Anion Gap 11 MEQ/L Blood Urea Nitrogen 26 MG/DL Creatinine 1.70 MG/DL Estimat Glomerular Filtration 40 ML/MIN Rate Random Glucose 89 MG/DL Calcium Level 8.7 MG/DL Total Bilirubin 0.7 MG/DL Aspartate Amino Transf 27 U/L (AST/SGOT) Alanine Aminotransferase 24 U/L (ALT/SGPT) Alkaline Phosphatase 72 U/L Total Creatine Kinase 21 U/L Troponin I LESS THAN 0.02 NG/ML Total Protein 8.2 GM/DL Albumin 3.0 GM/DL MDM Medical Decision Making Medical Screen Exam Complete: Yes Emergency Medical Condition: Yes Medical Record Reviewed: Yes Interpretation(s) ECG shows sinus bradycardia at 55, no ST elevation or depression. There are T- wave inversions in V2 and V3. Differential Diagnosis Dehydration versus infection versus ICH versus CVA versus deconditioning versus malnutrition Narrative Course Patient is a 75-year-old male comes in complaining of dizziness and weakness with frequent falls. Exam shows an area of erythema just above the left knee. Neurologic exam is within normal limits. IV established, labs sent. Patient given IV fluids. Creatinine is elevated to 1.7, which is up from 0.[address] head shows no acute abnormalities. Patient admitted for further management. Diagnosis Primary Impression: HIEN (acute kidney injury) Additional Impressions: Dehydration Failure to thrive in adult Admitting Information Admitting Physician Requests: Observation Condition: Stable Gissel Julien MD July 19, 2016 19:20
[2016-07-19] MEDS ORDERED: NALOXONE HCL 0.4 MG/ML AMP IV PRN (20:15)
[2016-07-19] MEDS ORDERED: SODIUM CHLORIDE 0.9% FLUSH 10 ML FLUSH IV FLUSH PRN (20:15)
[2016-07-19 20:21] LABS: BLOOD, URINE NEG (NEG); GLUCOSE,URINE NEG (NEG); KETONE, URINE TRACE mg/dL (NEG); NITRITE,URINE NEG (NEG); PH, URINE 5.5 (5.0-8.5)
[2016-07-19 20:25] LABS: URINE COLOR YELLOW (YELLW/STRAW)
[2016-07-19 20:26] LABS: COMMENT (UR) CULT NOT INDICATED; CULTURE IF INDICATED CULT NOT INDICATED; RBC, URINE 0-3 /hpf (0-3); SQUAMOUS EPITHELIAL CELL URINE 0-5 /hpf (0-5)
[2016-07-19] MEDS: SODIUM CHLORIDE 0.9% FLUSH 10 ML FLUSH IV FLUSH SCH (21:00)
[2016-07-20] VITALS (7 sets, daily range): BP systolic 96–157; BP diastolic 53–74; PULSE 74–98; RESP 16–20; TEMP 97.3–100.4; O2SAT 96–100
--- NOTE | 2016-07-20 08:12 | HHI.HP ---
[facility] Admission Diagnosis Dehydration, HIEN, Failure to thrive Diagnoses: (1) Dehydration Diagnosis: Principal Chief Complaint: generalized weakness Travel History International Travel<30 Days: No Contact w/Intl Traveler <30 Da: No Traveled to Known Affected Are: No History of Present Illness patient is a 75 y/o male who presented to ER with generalized weakness. he was admitted recently to the hospital because of TIA and had work-up and was sent home. he's not a good historian but he says that his appetite is poor and hasn' t eaten as much. he says that he feels weak and had a fall a couple of days ago. he denies any chest pain, abdominal pain, nausea. no report of fever. Review of Systems Constitutional: COMPLAINS OF: Fatigue, DENIES: Fever, Weight loss, Chills, Night Sweats Eyes: DENIES: Blurred vision, Diplopia, Vision loss, Double Vision Ears, nose, mouth, throat: DENIES: Tinnitus, Vertigo, Throat pain, Epistaxis Respiratory: DENIES: Apneas, Cough, Snoring, Wheezing, Hemoptysis, Sputum production, Shortness of breath Cardiovascular: DENIES: Chest pain, Palpitations, Syncope, Dyspnea on Exertion , PND, Lower Extremity Edema, Orthopnea, Claudication Gastrointestinal: DENIES: Abdominal pain, Black stools, Bloody stools, Constipation, Diarrhea, Nausea, Vomiting, Difficulty Swallowing, Anorexia Genitourinary: DENIES: Urinary frequency, Urgency, Hematuria, Dysuria Musculoskeletal: DENIES: Joint pain, Muscle aches, Stiffness, Joint Swelling Integumentary: DENIES: Rash Neurologic: DENIES: Abnormal gait, Headache, Localized weakness, Paresthesias, Seizures, Speech Problems, Tremor, Poor Balance Psychiatric: DENIES: Anxiety, Confusion, Mood changes, Depression, Hallucinations, Agitation, Suicidal Ideation, Homicidal Ideation, Delusions Past Family Social History Past Medical History pancytopenia TIA Reported Medications none reported. Allergies: Coded Allergies: MRI PRECAUTION (Verified Adverse Reaction, Severe, METAL IN LEFT EYE (RBN ) 10/16/06, 07/19/16) Active Ordered Medications Current Medications Meclizine HCl (Antivert) 25 mg ONCE ONCE PO Last administered on 07/19/16 17: 59; Start 07/19/16 at 17:30; Stop 07/19/16 at 17:31; Status DC Sodium Chloride 2 ml 2 ml UNSCH PRN IVF FLUSH AFTER USING IV ACCESS; Start at 17:30; Stop 07/19/16 at 20:14; Status DC Sodium Chloride 1,000 ml @ 1,000 mls/hr Q1H ONCE IV Last administered on 17:59; Start 07/19/16 at 17:22; Stop 07/19/16 at 18:21; Status DC Ampicillin Sodium/ Sulbactam Sodium/ Sodium Chloride (Unasyn Inj/NS Inj) 100 ml @ 200 mls/hr ONCE ONCE IV Last administered on 07/19/16 19:28; Start at 19:15; Stop 07/19/16 at 19:44; Status DC Sodium Chloride (NS Flush) 2 ml UNSCH PRN IV FLUSH FLUSH AFTER USING IV ACCESS ; Start 07/19/16 at 20:15 Sodium Chloride (NS Flush) 2 ml BID IV FLUSH ; Start 07/19/16 at 21:00 Naloxone HCl (Narcan Inj) 0.4 mg UNSCH PRN IV SEE LABEL COMMENTS; Start at 20:15 Family History not relevant to this admission. Social History no smoking or drinking. Physical Exam Vital Signs Vital Signs Date Time Temp Pulse Resp B/P Pulse Ox O2 Delivery O2 Flow Rate FiO2 07/20/16 04:00 100.4 81 20 157/70 99 07/19/16 22:22 65 17 128/68 97 07/19/16 22:20 96.0 70 20 175/80 98 07/19/16 21:10 59 18 129/66 96 Room Air 07/19/16 19:07 98.9 62 18 153/70 99 Room Air 07/19/16 19:07 Room Air 07/19/16 18:03 16 99 Room Air 07/19/16 18:00 57 16 143/85 99 Room Air 07/19/16 17:46 58 16 99 07/19/16 16:02 97.5 77 15 103/66 99 Physical Exam GENERAL: This is a well-nourished, well-developed patient, in no apparent distress. SKIN: No rashes, ecchymoses or lesions. Cool and dry. HEAD: Atraumatic. Normocephalic. No temporal or scalp tenderness. EYES: Pupils equal round and reactive. Extraocular motions intact. No scleral icterus. No injection or drainage. ENT: Nose without bleeding, purulent drainage or septal hematoma. Throat without erythema, tonsillar hypertrophy or exudate. Uvula midline. Airway patent. NECK: Trachea midline. No JVD or lymphadenopathy. Supple, nontender, no meningeal signs. CARDIOVASCULAR: Regular rate and rhythm without murmurs, gallops, or rubs. RESPIRATORY: Clear to auscultation. Breath sounds equal bilaterally. No wheezes , rales, or rhonchi. GASTROINTESTINAL: Abdomen soft, non-tender, nondistended. No hepato-splenomegaly , or palpable masses. No guarding. MUSCULOSKELETAL: Extremities without clubbing, cyanosis, or edema. No joint tenderness, effusion, or edema noted. No calf tenderness. Negative Homans sign bilaterally. NEUROLOGICAL: Awake and alert. Cranial nerves II through XII intact. Motor and sensory grossly within normal limits. Five out of 5 muscle strength in all muscle groups. Normal speech. Laboratory Laboratory Tests Test 07/19/16 07/19/16 17:55 20:00 White Blood Count 3.9 Red Blood Count 3.91 Hemoglobin 11.5 Hematocrit 34.3 Mean Corpuscular Volume 87.8 Mean Corpuscular Hemoglobin 29.4 Mean Corpuscular Hemoglobin 33.5 Concent Red Cell Distribution Width 13.2 Platelet Count 72 Mean Platelet Volume 9.7 Neutrophils (%) (Auto) 78.0 Lymphocytes (%) (Auto) 9.6 Monocytes (%) (Auto) 7.7 Eosinophils (%) (Auto) 4.5 Basophils (%) (Auto) 0.2 Neutrophils # (Auto) 3.0 Lymphocytes # (Auto) 0.4 Monocytes # (Auto) 0.3 Eosinophils # (Auto) 0.2 Basophils # (Auto) 0.0 CBC Comment AUTO DIFF Differential Comment AUTO DIFF CONFIRMED Platelet Estimate LOW Platelet Morphology Comment NORMAL Ovalocytes 1+ Prothrombin Time 9.9 Prothromb Time International 0.9 Ratio Activated Partial 30.1 Thromboplast Time Sodium Level 137 Potassium Level 3.7 Chloride Level 103 Carbon Dioxide Level 23.0 Anion Gap 11 Blood Urea Nitrogen 26 Creatinine 1.70 Estimat Glomerular Filtration 40 Rate Random Glucose 89 Calcium Level 8.7 Total Bilirubin 0.7 Aspartate Amino Transf 27 (AST/SGOT) Alanine Aminotransferase 24 (ALT/SGPT) Alkaline Phosphatase 72 Total Creatine Kinase 21 Troponin I LESS THAN 0.02 Total Protein 8.2 Albumin 3.0 Urine Color YELLOW Urine Turbidity CLEAR Urine pH 5.5 Urine Specific [place] 1.012 Urine Protein TRACE Urine Glucose (UA) NEG Urine Ketones TRACE Urine Occult Blood NEG Urine Nitrite NEG Urine Bilirubin NEG Urine Leukocyte Esterase NEG Urine RBC 0-3 Urine WBC 3-5 Urine Squamous Epithelial 0-5 Cells Urine Bacteria NONE Microscopic Urinalysis Comment CULT NOT INDICATED Result Diagram: 07/19/16175407/19/161754 Imaging Last Impressions Head CT 07/19/161721 Signed Impressions: Service Date/Time: Tuesday, July 19, 2016 17:38 - CONCLUSION: Improved aeration of the right sphenoid sinus. Normal appearance of the brain for age. Tyshawn Brooke MD Chest X-Ray 07/19/161721 Signed Impressions: Service Date/Time: Tuesday, July 19, 2016 17:37 - CONCLUSION: No acute disease. Tyshawn Brooke MD Assessment and Plan Assessment and Plan A/P - generalized weakness fall precautions- consult PT -dehydration/ acute kidney injury start IV fluid with NS- monitor the renal function and I/O -pancytopenia; evaluated by hematology last admission- f/u as outpatient -TIA; resume aspirin -DVT prophylaxis with SCD's Discussed Condition With the patient. Debbie Barrera MD July 20, 2016 08:11
[2016-07-20] MEDS ORDERED: ONDANSETRON HCL 4 MG/2 ML VIAL IV PUSH PRN (08:15)
[2016-07-20] MEDS: SODIUM CHLOR 0.9% 1000 ML INJ 1,000 ML IV SCH ×2 (09:50→20:24)
[2016-07-20] MEDS: SODIUM CHLORIDE 0.9% FLUSH 10 ML FLUSH IV FLUSH SCH ×2 (09:50→20:25)
[2016-07-20] MEDS: ASPIRIN 81 MG CHEW TAB CHEW SCH (09:50)
[2016-07-20 13:19] LABS: AUTOMATED NEUTROPHIL # 3.6 TH/MM3 (1.8-7.7); BASOPHIL % 0.1 % (0.0-2.0); EOSINOPHIL % 0.8 % (0.0-4.0); HEMATOCRIT 31.2 % (39.0-51.0); LYMPHOCYTE # 0.5 TH/MM3 (1.0-4.8); MEAN CELL VOLUME 87.5 FL (80.0-100.0); MEAN CORPUSCULAR HEMOGLOBIN 29.5 PG (27.0-34.0); MEAN CORPUSCULAR HGB CONC 33.7 % (32.0-36.0); MONO % 7.7 % (0.0-8.0); NEUT % 79.4 % (16.0-70.0); PLATELET COUNT 79 TH/MM3 (150-450); RED BLOOD COUNT 3.57 MIL/MM3 (4.50-5.90); RED CELL DISTRIBUTION WIDTH 13.1 % (11.6-17.2); WHITE BLOOD COUNT 4.4 TH/MM3 (4.0-11.0)
[2016-07-20 13:22] LABS: HEMO FLAGS AUTO DIFF
[2016-07-20 13:26] LABS: POTASSIUM 3.9 MEQ/L (3.5-5.1)
[2016-07-20 13:29] LABS: BICARBONATE 22.8 MEQ/L (21.0-32.0)
[2016-07-20 13:36] LABS: OVALOCYTES 1+ (NORMAL); PLATELET ESTIMATE SMEAR LOW (NORMAL); PLATELET MORPHOLOGY NORMAL (NORMAL); SCAN/DIFF AUTO DIFF CONFIRMED
[2016-07-20] MEDS ORDERED: ACETAMINOPHEN 325 MG TAB PO PRN (15:45)
[2016-07-20] MEDS ORDERED: ALUMINUM/MAGNESIUM/SIMETH 30 ML CUP PO PRN (15:45)
[2016-07-20] MEDS ORDERED: DOCUSATE SODIUM 100 MG CAP PO PRN (15:45)
[2016-07-20] MEDS ORDERED: ASPI81CH25 CHEW (16:30)
--- NOTE | 2016-07-20 17:22 | EKG ---
Date Performed: 07/19/2016 Time Performed: 18:12:00 PTAGE: 75 years EKG: Sinus bradycardia Anterior T wave changes are nonspecific Borderline ECG PREVIOUS TRACING : 07/02/2016 14.47 Compared to prior tracing no significant change DOCTOR: Jesus Martinez Interpretating Date/Time 07/20/2016 17:22:03
--- NOTE | 2016-07-20 21:38 | RADHPO ---
EXAM DATE/TIME: 07/20/2016 21:08 [facility] COMPARISON: No previous studies available for comparison. INDICATIONS : Patient fell in February and got an infection in [facility]. MEDICAL HISTORY : Cerebrovascular disease. Hypertension. SURGICAL HISTORY : Thyroidectomy. ENCOUNTER: Initial ACUITY: 4 - 6 months PAIN SCORE: 8/10 LOCATION: Left Knee. FINDINGS: There is nonspecific prepatellar soft tissue swelling and probably including distal quadriceps. There is mild tricompartment osteoarthritis. No fracture. No perceptible joint effusion. CONCLUSION: Prepatellar soft tissue swelling. No acute intra-articular abnormality demonstrated. Miguel Ángel Borja MD on July 20, 2016 at 21:36 Board Certified Radiologist. This report was verified electronically.
[2016-07-21 03:00] VITALS: BP 124/71; PULSE 79; RESP 14; TEMP 98.3; O2SAT 95
[2016-07-21 06:49] LABS: AUTOMATED NEUTROPHIL # 1.8 TH/MM3 (1.8-7.7); BASOPHIL % 0.3 % (0.0-2.0); EOSINOPHIL # 0.1 TH/MM3 (0-0.4); EOSINOPHIL % 5.9 % (0.0-4.0); HEMATOCRIT 30.3 % (39.0-51.0); LYMPH % 16.8 % (9.0-44.0); LYMPHOCYTE # 0.4 TH/MM3 (1.0-4.8); MEAN CELL VOLUME 87.4 FL (80.0-100.0); MEAN CORPUSCULAR HEMOGLOBIN 28.6 PG (27.0-34.0); MEAN CORPUSCULAR HGB CONC 32.8 % (32.0-36.0); MONO % 9.8 % (0.0-8.0); NEUT % 67.2 % (16.0-70.0); PLATELET COUNT 75 TH/MM3 (150-450); RED BLOOD COUNT 3.47 MIL/MM3 (4.50-5.90); RED CELL DISTRIBUTION WIDTH 13.3 % (11.6-17.2); WHITE BLOOD COUNT 2.5 TH/MM3 (4.0-11.0)
[2016-07-21 06:55] LABS: HEMO FLAGS AUTO DIFF
[2016-07-21 07:14] LABS: BICARBONATE 24.7 MEQ/L (21.0-32.0); OVALOCYTES 1+ (NORMAL); PLATELET ESTIMATE SMEAR LOW (NORMAL); PLATELET MORPHOLOGY NORMAL (NORMAL); POTASSIUM 3.6 MEQ/L (3.5-5.1); SCAN/DIFF AUTO DIFF CONFIRMED
[2016-07-21 08:00] VITALS: BP 162/73; PULSE 61; RESP 20; TEMP 97.3; O2SAT 100
[2016-07-21] MEDS: ASPIRIN 81 MG CHEW TAB CHEW SCH (08:53)
[2016-07-21] MEDS: SODIUM CHLORIDE 0.9% FLUSH 10 ML FLUSH IV FLUSH SCH ×2 (08:53→19:43)
[2016-07-21] MEDS: SODIUM CHLOR 0.9% 1000 ML INJ 1,000 ML IV SCH ×2 (08:53→21:42)
[2016-07-21] MEDS ORDERED: CEPH-459 PO (11:03)
--- NOTE | 2016-07-21 11:03 | HHI.DCPOC ---
Discharge Care Plan Diagnosis: (1) Dehydration (2) Frequent falls Your Health Problems Are: Difficulty with ADL Goals to Promote Your Health * To prevent worsening of your condition and complications * To maintain your health at the optimal level Directions to Meet Your Goals Take your medications as prescribed Follow your dietary instruction Follow activity as directed Keep your appointments as scheduled Take your immunizations and boosters as scheduled If your symptoms worsen call your PCP, if no PCP go to Urgent Care Center or Emergency Room Smoking is Dangerous to Your Health. Avoid second hand smoke Call the 24-hour hour crisis hotline for domestic abuse at Debbie Barrera MD July 21, 2016 11:03
--- NOTE | 2016-07-21 11:03 | HHI.PR ---
Subjective Remarks in no acute distress. denies pain. no new complaints. Objective Vitals Vital Signs Date Time Temp Pulse Resp B/P Pulse Ox O2 Delivery O2 Flow Rate FiO2 07/21/16 08:00 97.3 61 20 162/73 100 07/21/16 03:00 98.3 79 14 124/71 95 07/20/16 23:00 98.4 89 16 137/74 98 07/20/16 19:00 97.3 83 18 115/65 99 07/20/16 16:00 99.0 98 16 96/53 100 07/20/16 12:00 98.5 74 16 135/73 98 I/O 07/20/16 07/20/16 07/20/16 07/21/16 07/21/16 07/21/16 07:00 15:00 23:00 07:00 15:00 23:00 Intake Total 200 ml 1650 ml 1122 ml 1308 ml Output Total 200 ml 200 ml Balance 200 ml 1650 ml 922 ml 1108 ml Intake Oral 200 ml 1650 ml 450 ml 300 ml IV Total 672 ml 1008 ml Output Urine Total 200 ml 200 ml # Voids 3 3 1 2 # Bowel Movements 0 Result Diagram: 07/21/16 0535 07/21/16 0535 Imaging Last Impressions Knee X-Ray 07/20/16 0000 Signed Impressions: Service Date/Time: June 21:08 - CONCLUSION: Prepatellar soft tissue swelling. No acute intra-articular abnormality demonstrated. Miguel Ángel Borja MD Head CT 07/19/161721 Signed Impressions: Service Date/Time: Tuesday, July 19, 2016 17:38 - CONCLUSION: Improved aeration of the right sphenoid sinus. Normal appearance of the brain for age. Tyshawn Brooke MD Chest X-Ray 07/19/161721 Signed Impressions: Service Date/Time: Tuesday, July 19, 2016 17:37 - CONCLUSION: No acute disease. Tyshawn Brooke MD Objective Remarks GENERAL: This is a well-nourished, well-developed patient, in no apparent distress. CARDIOVASCULAR: Regular rate and regular rhythm without murmurs, gallops, or rubs. RESPIRATORY: Clear to auscultation. Breath sounds equal bilaterally. No wheezes , rales, or rhonchi. GASTROINTESTINAL: Abdomen soft, non-tender, nondistended. Normal, active bowel sounds MUSCULOSKELETAL: left knee is swollen but with no decrease in ROM. NEURO: Alert & Oriented x4 to person, place, time, situation. Moves all ext x4 Procedures none Medications and IVs Current Medications Meclizine HCl (Antivert) 25 mg ONCE ONCE PO Last administered on 07/19/16 17: 59; Start 07/19/16 at 17:30; Stop 07/19/16 at 17:31; Status DC Sodium Chloride 2 ml 2 ml UNSCH PRN IVF FLUSH AFTER USING IV ACCESS; Start at 17:30; Stop 07/19/16 at 20:14; Status DC Sodium Chloride 1,000 ml @ 1,000 mls/hr Q1H ONCE IV Last administered on 17:59; Start 07/19/16 at 17:22; Stop 07/19/16 at 18:21; Status DC Ampicillin Sodium/ Sulbactam Sodium/ Sodium Chloride (Unasyn Inj/NS Inj) 100 ml @ 200 mls/hr ONCE ONCE IV Last administered on 07/19/16 19:28; Start at 19:15; Stop 07/19/16 at 19:44; Status DC Sodium Chloride (NS Flush) 2 ml UNSCH PRN IV FLUSH FLUSH AFTER USING IV ACCESS ; Start 07/19/16 at 20:15 Sodium Chloride (NS Flush) 2 ml BID IV FLUSH Last administered on 07/21/16 08: 53; Start 07/19/16 at 21:00 Naloxone HCl 0.4 mg 0.4 mg UNSCH PRN IV SEE LABEL COMMENTS; Start 07/19/16 at 20:15 Sodium Chloride (NS 1000 ml Inj) 1,000 ml @ 84 mls/hr [id number] IV Last administered on 07/21/16 08:53; Start 07/20/16 at 08:15 Ondansetron HCl (Zofran Inj) 4 mg Q8HR PRN IV PUSH NAUSEA; Start 07/20/16 at 08 :15 Aspirin (Aspirin Chew) 81 mg DAILY CHEW Last administered on 07/21/16 08:53; Start 07/20/16 at 09:00 Acetaminophen (Tylenol) 650 mg Q4H PRN PO Temp > 100.4, pain 1-4 Last administered on 07/20/16t 20:24; Start 07/20/16 at 15:45 Docusate Sodium (Colace) 100 mg BID PRN PO CONSTIPATION; Start 07/20/16 at 15: 45 Al Hydrox/Mg Hydrox/Simethicone (Mag-Al Plus Susp Liq) 30 ml Q6H PRN PO DYSPEPSIA; Start 07/20/16 at 15:45 Acetaminophen/ Hydrocodone Bitart ([place] 5-325 Mg) 1 tab Q6H PRN PO PAIN SCALE 5 TO 10; Start 07/20/16 at 21:45 A/P Assessment and Plan - generalized weakness fall precautions- consulted PT -dehydration/ acute kidney injury- resolved -left knee swelling after a fall with mild cellulitic changes- knee XR is negative- will start Keflex. -pancytopenia; evaluated by hematology last admission- f/u as outpatient -TIA; resume aspirin -DVT prophylaxis with SCD's Discharge Planning discharge soon- case management consulted for possible rehab placement. f/u with pcp and hematology as outpatient. see med list. Debbie Barrera MD July 21, 2016 11:02
[2016-07-21] MEDS: ACETAMINOPHEN/HYDROcodone 325 MG/5 MG TAB PO PRN ×3 (11:27→23:36)
[2016-07-21 11:51] VITALS: BP 188/83; PULSE 70; RESP 20; TEMP 98.9; O2SAT 98
[2016-07-21] MEDS: CEPHALEXIN MONOHYDRATE 250 MG CAP PO SCH ×3 (12:20→23:36)
[2016-07-21 15:59] VITALS: BP 123/71; PULSE 58; RESP 16; TEMP 97.3; O2SAT 99
[2016-07-21 21:26] VITALS: BP 172/76; PULSE 68; RESP 20; TEMP 98.1; O2SAT 94
[2016-07-22 00:54] VITALS: BP 138/71; PULSE 69; RESP 18; TEMP 97.9; O2SAT 96
[2016-07-22] MEDS: CEPHALEXIN MONOHYDRATE 250 MG CAP PO SCH (06:24)
[2016-07-22] MEDS: ACETAMINOPHEN/HYDROcodone 325 MG/5 MG TAB PO PRN ×2 (06:28→13:31)
[2016-07-22] MEDS: SODIUM CHLOR 0.9% 1000 ML INJ 1,000 ML IV SCH ×2 (07:55→19:50)
[2016-07-22 08:00] VITALS: BP 182/80; PULSE 64; RESP 18; TEMP 97.9; O2SAT 97
[2016-07-22] MEDS: SODIUM CHLORIDE 0.9% FLUSH 10 ML FLUSH IV FLUSH SCH ×2 (09:00→21:00)
--- NOTE | 2016-07-22 09:15 | HHI.PR ---
Subjective Remarks resting comfortably with no distress. pain seems to be controlled. no new complaints. Objective Vitals Vital Signs Date Time Temp Pulse Resp B/P Pulse Ox O2 Delivery O2 Flow Rate FiO2 07/22/16 04:00 07/22/16 00:54 97.9 69 18 138/71 96 07/22/16 00:36 19 07/21/16 21:26 98.1 68 20 172/76 94 07/21/16 15:59 97.3 58 16 123/71 99 07/21/16 11:51 98.9 70 20 188/83 98 I/O 07/21/16 07/21/16 07/21/16 07/22/16 07/22/16 07/22/16 07:00 15:00 23:00 07:00 15:00 23:00 Intake Total 1308 ml 1170 ml Output Total 200 ml Balance 1108 ml 1170 ml Intake Oral 300 ml 1170 ml IV Total 1008 ml Output Urine Total 200 ml # Voids 2 3 2 Result Diagram: 07/21/16 0535 07/21/16 0535 Imaging Last Impressions Knee X-Ray 07/20/16 0000 Signed Impressions: Service Date/Time: June 21:08 - CONCLUSION: Prepatellar soft tissue swelling. No acute intra-articular abnormality demonstrated. Miguel Ángel Borja MD Head CT [id number]/19/161721 Signed Impressions: Service Date/Time: Tuesday, July 19, 2016 17:38 - CONCLUSION: Improved aeration of the right sphenoid sinus. Normal appearance of the brain for age. Tyshawn Brooke MD Chest X-Ray 07/19/161721 Signed Impressions: Service Date/Time: Tuesday, July 19, 2016 17:37 - CONCLUSION: No acute disease. Tyshawn Brooke MD Objective Remarks GENERAL: This is a well-nourished, well-developed patient, in no apparent distress. CARDIOVASCULAR: Regular rate and regular rhythm without murmurs, gallops, or rubs. RESPIRATORY: Clear to auscultation. Breath sounds equal bilaterally. No wheezes , rales, or rhonchi. GASTROINTESTINAL: Abdomen soft, non-tender, nondistended. Normal, active bowel sounds MUSCULOSKELETAL: left knee is swollen but with no decrease in ROM. NEURO: Alert & Oriented x4 to person, place, time, situation. Moves all ext x4 Procedures none Medications and IVs Current Medications Meclizine HCl (Antivert) 25 mg ONCE ONCE PO Last administered on 07/19/16 17: 59; Start 07/19/16 at 17:30; Stop 07/19/16 at 17:31; Status DC Sodium Chloride 2 ml 2 ml UNSCH PRN IVF FLUSH AFTER USING IV ACCESS; Start at 17:30; Stop 07/19/16 at 20:14; Status DC Sodium Chloride 1,000 ml @ 1,000 mls/hr Q1H ONCE IV Last administered on 17:59; Start 07/19/16 at 17:22; Stop 07/19/16 at 18:21; Status DC Ampicillin Sodium/ Sulbactam Sodium/ Sodium Chloride (Unasyn Inj/NS Inj) 100 ml @ 200 mls/hr ONCE ONCE IV Last administered on 07/19/16 19:28; Start at 19:15; Stop 07/19/16 at 19:44; Status DC Sodium Chloride (NS Flush) 2 ml UNSCH PRN IV FLUSH FLUSH AFTER USING IV ACCESS ; Start 07/19/16 at 20:15 Sodium Chloride (NS Flush) 2 ml BID IV FLUSH Last administered on 07/21/16 08: 53; Start 07/19/16 at 21:00 Naloxone HCl 0.4 mg 0.4 mg UNSCH PRN IV SEE LABEL COMMENTS; Start 07/19/16 at 20:15 Sodium Chloride (NS 1000 ml Inj) 1,000 ml @ 84 mls/hr [id number] IV Last administered on 07/21/16 21:42; Start 07/20/16 at 08:15 Ondansetron HCl (Zofran Inj) 4 mg Q8HR PRN IV PUSH NAUSEA; Start 07/20/16 at 08 :15 Aspirin (Aspirin Chew) 81 mg DAILY CHEW Last administered on 07/21/16 08:53; Start 07/20/16 at 09:00 Acetaminophen (Tylenol) 650 mg Q4H PRN PO Temp > 100.4, pain 1-4 Last administered on 07/20/16 20:24; Start 07/20/16 at 15:45 Docusate Sodium (Colace) 100 mg BID PRN PO CONSTIPATION; Start 07/20/16 at 15: 45 Al Hydrox/Mg Hydrox/Simethicone (Mag-Al Plus Susp Liq) 30 ml Q6H PRN PO DYSPEPSIA; Start 07/20/16 at 15:45 Acetaminophen/ Hydrocodone Bitart ([place] 5-325 Mg) 1 tab Q6H PRN PO PAIN SCALE 5 TO 10 Last administered on 07/22/16 06:28; Start 07/20/16 at 21:45 Cephalexin Monohydrate (Keflex) 250 mg Q6HR PO Last administered on 07/22/16 06:24; Start 07/21/16 at 12:00 A/P Assessment and Plan - generalized weakness fall precautions- consulted PT -dehydration/ acute kidney injury- resolved -left knee swelling after a fall with cellulitic changes- knee XR is negative- will start on Ancef- will obtain the wound culture and soft tissue- monitor the response -pancytopenia; evaluated by hematology last admission- f/u as outpatient -TIA; resumed aspirin -DVT prophylaxis with SCD's Debbie Barrera MD July 22, 2016 09:15 see med list. Debbie Barrera MD July 22, 2016 09:15
[2016-07-22 09:54] LABS: AUTOMATED NEUTROPHIL # 2.5 TH/MM3 (1.8-7.7); BASOPHIL % 0.2 % (0.0-2.0); EOSINOPHIL # 0.2 TH/MM3 (0-0.4); EOSINOPHIL % 4.4 % (0.0-4.0); HEMATOCRIT 30.1 % (39.0-51.0); LYMPH % 14.1 % (9.0-44.0); LYMPHOCYTE # 0.5 TH/MM3 (1.0-4.8); MEAN CELL VOLUME 87.5 FL (80.0-100.0); MEAN CORPUSCULAR HEMOGLOBIN 29.1 PG (27.0-34.0); MEAN CORPUSCULAR HGB CONC 33.3 % (32.0-36.0); NEUT % 72.3 % (16.0-70.0); PLATELET COUNT 69 TH/MM3 (150-450); RED BLOOD COUNT 3.44 MIL/MM3 (4.50-5.90); RED CELL DISTRIBUTION WIDTH 13.7 % (11.6-17.2); WHITE BLOOD COUNT 3.5 TH/MM3 (4.0-11.0)
[2016-07-22] MEDS: ASPIRIN 81 MG CHEW TAB CHEW SCH (10:04)
[2016-07-22 10:08] LABS: HEMO FLAGS AUTO DIFF
[2016-07-22 10:37] LABS: OVALOCYTES 2+ (NORMAL); PLATELET ESTIMATE SMEAR LOW (NORMAL); PLATELET MORPHOLOGY NORMAL (NORMAL); SCAN/DIFF AUTO DIFF CONFIRMED
[2016-07-22 12:00] VITALS: BP 151/75; PULSE 62; RESP 18; TEMP 97.7; O2SAT 98
--- NOTE | 2016-07-22 15:59 | RADHPO ---
EXAM DATE/TIME: 07/22/2016 13:16 [facility] COMPARISON: KNEE LEFT COMPLETE (4VWS), July 20, 2016, 21:08. INDICATIONS : Left knee swelling and pain. MEDICAL HISTORY : Hypertension. Diverticulitis. Hypercholesterolemia. Thyroid disease. Cerebrovascular accident. SURGICAL HISTORY : Appendectomy. Bowel resection. Partial thyroidectomy. ENCOUNTER: Initial ACUITY: > 1 year PAIN SCORE: 6/10 LOCATION: Left knee. AREA EVALUATED: Anterior left knee. FINDINGS: 4 cm x 2 cm mass sitting just above the patella indicating some fluid and debris apparently leaking f luid that would be consistent with an abscess. CONCLUSION: Probable abscess. MRI could help ascertain whether this involves the joint. Castillo Baca MD FACR on July 22, 2016 at 15:52 Board Certified Radiologist. This report was verified electronically.
[2016-07-22 16:00] VITALS: BP 98/61; PULSE 62; RESP 19; TEMP 98; O2SAT 99
[2016-07-22] MEDS ORDERED: Vancomycin Consult Pharmacy 1 EA OTHER SCH (18:00)
--- NOTE | 2016-07-22 19:09 | RADHPO ---
EXAM DATE/TIME: 07/22/2016 18:42 [facility] COMPARISON: No previous studies available for comparison. INDICATIONS : MRI clearance MEDICAL HISTORY : None. SURGICAL HISTORY : None. ENCOUNTER: Subsequent ACUITY: 1 day PAIN SCORE: 0/10 LOCATION: Bilateral orbits FINDINGS: There is in wire wrap bandage over rim fracture left. This should not be an issue with an MRI. CONCLUSION: Wire wrap should not be an issue with MRI. Castillo Baca MD FACR on July 22, 2016 at 19:07 Board Certified Radiologist. This report was verified electronically.
[2016-07-22] MEDS ORDERED: GADODIAMIDE PF 287 MG/ML 10 ML VIAL (for RAD MRI) IV ONE (19:57)
[2016-07-22 20:00] VITALS: BP 115/68; PULSE 69; RESP 20; TEMP 98.3; O2SAT 98
--- NOTE | 2016-07-22 20:30 | RADHPO ---
EXAM DATE/TIME: 07/22/2016 19:36 [facility] COMPARISON: No previous studies available for comparison. INDICATIONS : Abscess. CONTRAST: 10 cc Omniscan (gadodiamide) IV MEDICAL HISTORY : None. SURGICAL HISTORY : None. ENCOUNTER: Initial ACUITY: 3 months PAIN SCORE: 6/10 LOCATION: Left knee. TECHNIQUE: Multiplanar multisequence MRI examination of the knee was performed with and without contrast. FINDINGS: MRI of the knee was performed in the patient with extensive induration and inflammatory changes over the patella. There is a well-defined fluid collection sitting in the suprapatellar fat above the quadriceps tendon . There is a small joint effusion evident. There is no significant enhancement of the effusion sugg esting inflammatory process. Marrow appears homogeneous in the distal femur, proximal tibia and fibula. CRUCIATE LIGAMENTS: There is some increased signal in the substance of the anterior cruciate. However, most of the fiber s appear intact. Posterior cruciate is intact. MEDIAL MENISCUS: There is a broad area of increased signal in the undersurface of the laeral meniscus extending to the free edge of the meniscus that would be consistent with a tear. This extends into the mid meniscus. The anterior horn of the medial meniscus is unremarkable. LATERAL MENISCUS: There is minimal increased signal within the substance of the lateral meniscus. COLLATERAL LIGAMENTS: The lateral collateral and medial collateral ligament complexes appear intact. The patellofemoral compartment is unremarkable. CONCLUSION: Fluid collection as described above sitting in the fat above the quadriceps tendon that appears to co mmunicate with the skin and all would be consistent with an inflammatory process without osteomyeliti s. Castillo Baca MD FACR on July 22, 2016 at 20:13 Board Certified Radiologist. This report was verified electronically.
[2016-07-22] MEDS: VANCOMYCIN INJ 1,250 MG in SODIUM CHLOR 0.9% 250 ML INJ 250 ML IV SCH (21:03)
[2016-07-23 00:49] VITALS: BP 157/84; PULSE 71; RESP 18; TEMP 98.9; O2SAT 98
[2016-07-23 08:00] VITALS: BP 150/73; PULSE 70; RESP 18; TEMP 98.9; O2SAT 97
[2016-07-23] MEDS: SODIUM CHLOR 0.9% 1000 ML INJ 1,000 ML IV SCH ×2 (09:00→17:47)
[2016-07-23] MEDS: ASPIRIN 81 MG CHEW TAB CHEW SCH (09:00)
[2016-07-23] MEDS: SODIUM CHLORIDE 0.9% FLUSH 10 ML FLUSH IV FLUSH SCH ×2 (09:01→19:00)
--- NOTE | 2016-07-23 09:47 | HHI.PR ---
Subjective Remarks overall doing fine. has minimal to mild pain to the left knee. no fever. otherwise no other complaints. Objective Vitals Vital Signs Date Time Temp Pulse Resp B/P Pulse Ox O2 Delivery O2 Flow Rate FiO2 07/23/16 08:00 98.9 70 18 150/73 97 07/23/16 04:00 07/23/16 00:49 98.9 71 18 157/84 98 07/22/16 20:00 98.3 69 20 115/68 98 07/22/16 16:00 98.0 62 19 98/61 99 07/22/16 12:00 97.7 62 18 151/75 98 I/O 07/22/16 07/22/16 07/22/16 07/23/16 07/23/16 07/23/16 06:59 14:59 22:59 06:59 14:59 22:59 Intake Total 480 ml 1008 ml 845 ml Output Total 950 ml 200 ml Balance -470 ml 1008 ml 645 ml Intake Oral 480 ml IV Total 1008 ml 845 ml Output Urine Total 950 ml 200 ml # Voids 2 3 # Bowel Movements 0 0 Result Diagram: 07/22/16 0939 07/21/16 0535 Imaging Last Impressions Orbit X-Ray 07/22/16 0000 Signed Impressions: Service Date/Time: Friday, July 22, 2016 18:42 - CONCLUSION: Wire wrap should not be an issue with MRI. Castillo Baca MD FACR Lower Extremity Ultrasound 07/22/16 0000 Signed Impressions: Service Date/Time: Friday, July 22, 2016 13:16 - CONCLUSION: Probable abscess. MRI could help ascertain whether this involves the joint. Castillo Baca MD FACR Knee MRI 07/22/16 0000 Signed Impressions: Service Date/Time: Friday, July 22, 2016 19:36 - CONCLUSION: Fluid collection as described above sitting in the fat above the quadriceps tendon that appears to communicate with the skin and all would be consistent with an inflammatory process without osteomyelitis. Castillo Baca MD FACR Knee X-Ray 07/20/16 0000 Signed Impressions: Service Date/Time: June 21:08 - CONCLUSION: Prepatellar soft tissue swelling. No acute intra-articular abnormality demonstrated. Miguel Ángel Borja MD Head CT 5/24/17 1722 Signed Impressions: Service Date/Time: Tuesday, July 19, 2016 17:38 - CONCLUSION: Improved aeration of the right sphenoid sinus. Normal appearance of the brain for age. Tyshawn Brooke MD Chest X-Ray 07/19/161721 Signed Impressions: Service Date/Time: Tuesday, July 19, 2016 17:37 - CONCLUSION: No acute disease. Tyshawn Brooke MD Objective Remarks GENERAL: This is a well-nourished, well-developed patient, in no apparent distress. CARDIOVASCULAR: Regular rate and regular rhythm without murmurs, gallops, or rubs. RESPIRATORY: Clear to auscultation. Breath sounds equal bilaterally. No wheezes , rales, or rhonchi. GASTROINTESTINAL: Abdomen soft, non-tender, nondistended. Normal, active bowel sounds MUSCULOSKELETAL: left knee is swollen but with no decrease in ROM. NEURO: Alert & Oriented x4 to person, place, time, situation. Moves all ext x4 Procedures none Medications and IVs Current Medications Meclizine HCl (Antivert) 25 mg ONCE ONCE PO Last administered on 07/19/16 17: 59; Start 07/19/16 at 17:30; Stop 07/19/16 at 17:31; Status DC Sodium Chloride 2 ml 2 ml UNSCH PRN IVF FLUSH AFTER USING IV ACCESS; Start at 17:30; Stop 07/19/16 at 20:14; Status DC Sodium Chloride 1,000 ml @ 1,000 mls/hr Q1H ONCE IV Last administered on 17:59; Start 07/19/16 at 17:22; Stop 07/19/16 at 18:21; Status DC Ampicillin Sodium/ Sulbactam Sodium/ Sodium Chloride (Unasyn Inj/NS Inj) 100 ml @ 200 mls/hr ONCE ONCE IV Last administered on 07/19/16 19:28; Start at 19:15; Stop 07/19/16 at 19:44; Status DC Sodium Chloride (NS Flush) 2 ml UNSCH PRN IV FLUSH FLUSH AFTER USING IV ACCESS ; Start 07/19/16 at 20:15 Sodium Chloride (NS Flush) 2 ml BID IV FLUSH Last administered on 07/21/16 08: 53; Start 07/19/16 at 21:00 Naloxone HCl 0.4 mg 0.4 mg UNSCH PRN IV SEE LABEL COMMENTS; Start 07/19/16 at 20:15 Sodium Chloride (NS 1000 ml Inj) 1,000 ml @ 84 mls/hr [id number] IV Last administered on 07/23/16 09:00; Start 07/20/16 at 08:15 Ondansetron HCl (Zofran Inj) 4 mg Q8HR PRN IV PUSH NAUSEA; Start 07/20/16 at 08 :15 Aspirin (Aspirin Chew) 81 mg DAILY CHEW Last administered on 07/23/16 09:00; Start 07/20/16 at 09:00 Acetaminophen (Tylenol) 650 mg Q4H PRN PO Temp > 100.4, pain 1-4 Last administered on 07/20/16 20:24; Start 07/20/16 at 15:45 Docusate Sodium (Colace) 100 mg BID PRN PO CONSTIPATION; Start 07/20/16 at 15: 45 Al Hydrox/Mg Hydrox/Simethicone (Mag-Al Plus Susp Liq) 30 ml Q6H PRN PO DYSPEPSIA; Start 07/20/16 at 15:45 Acetaminophen/ Hydrocodone Bitart ([place] 5-325 Mg) 1 tab Q6H PRN PO PAIN SCALE 5 TO 10 Last administered on 07/22/16 13:31; Start 07/20/16 at 21:45 Cephalexin Monohydrate 250 mg 250 mg Q6HR PO Last administered on 07/22/16 06: 24; Start 07/21/16 at 12:00; Stop 07/22/16 at 09:13; Status DC Cefazolin Sodium 1000 mg/Sodium Chloride 100 ml @ 200 mls/hr Q8H IV Last administered on 07/23/16 02:41; Start 07/22/16 at 10:00 Vancomycin HCl 1250 mg/Sodium Chloride 262.5 ml @ 262.5 mls/ hr Q18H IV Last administered on 07/22/16 21:03; Start 07/22/16 at 20:00 Pharmacy Profile Note (Vancomycin Consult Pharmacy) 0 ml @ 0 mls/hr UNSCH OTHER ; Start 07/22/16 at 18:00 Miscellaneous Information SPECIFIC LAB TO BE DRAWN:VANCOMY... ONCE ONCE .XX ; Start 07/25/16 at 01:45; Stop 07/25/16 at 01:46 Gadodiamide (Omniscan Pf Inj) 10 ml STK-MED ONCE IV Last administered on t 19:57; Start 07/22/16 at 19:57; Stop 07/22/16 at 19:58; Status DC A/P Problem List: (1) Dehydration ICD Code: E86.0 Status: Acute Assessment and Plan - generalized weakness fall precautions- consulted PT -dehydration/ acute kidney injury- resolved -left knee swelling after a fall with cellulitic changes- MRI of the left knee as above; MRI findings was reviewed with who recommended outpatient f/u with ortho office. consulted IR for draining the fluid collection. will continue with IV antibiotic and follow the culture. -pancytopenia; evaluated by hematology last admission- fairly stable.f/u as outpatient -TIA; resumed aspirin -DVT prophylaxis with SCD's Debbie Barrera MD July 23, 2016 09:47
[2016-07-23] MEDS: cefTRIAXone INJ 1,000 MG in SODIUM CHLORIDE 0.9% INJ 100 ML IV SCH ×2 (10:00→11:47)
[2016-07-23 12:00] VITALS: BP 149/69; PULSE 66; RESP 19; TEMP 97.1; O2SAT 97
[2016-07-23] MEDS: VANCOMYCIN INJ 1,250 MG in SODIUM CHLOR 0.9% 250 ML INJ 250 ML IV SCH (14:06)
[2016-07-23 16:00] VITALS: BP 135/71; PULSE 78; RESP 20; TEMP 97.4; O2SAT 98
[2016-07-23 22:22] VITALS: BP 154/64; PULSE 66; RESP 16; TEMP 98.6; O2SAT 98
[2016-07-24 00:29] VITALS: BP 143/70; PULSE 65; RESP 18; TEMP 98; O2SAT 98
[2016-07-24] MEDS: SODIUM CHLOR 0.9% 1000 ML INJ 1,000 ML IV SCH (03:57)
[2016-07-24 08:00] VITALS: BP 130/70; PULSE 60; RESP 17; TEMP 98.3; O2SAT 97
--- NOTE | 2016-07-24 08:28 | HHI.PR ---
Subjective Remarks resting comfortably with no distress. denies pain. no fever. d/w the RN and no acute issues over night. Objective Vitals Vital Signs Date Time Temp Pulse Resp B/P Pulse Ox O2 Delivery O2 Flow Rate FiO2 07/24/16 04:43 07/24/16 00:29 98.0 65 18 143/70 98 07/23/16 22:22 98.6 66 16 154/64 98 07/23/16 16:00 97.4 78 20 135/71 98 07/23/16 12:00 97.1 66 19 149/69 97 I/O 07/23/16 07/23/16 07/23/16 07/24/16 07/24/16 07/24/16 07:00 15:00 23:00 07:00 15:00 23:00 Intake Total 845 ml 600 ml Output Total 200 ml 1600 ml 300 ml 1700 ml Balance 645 ml -1000 ml -300 ml -1700 ml Intake Oral 600 ml IV Total 845 ml Output Urine Total 200 ml 1600 ml 300 ml 1700 ml # Voids 3 # Bowel Movements 0 1 0 Result Diagram: 07/22/16 0939 07/21/16 0535 Imaging Last Impressions Orbit X-Ray 07/22/16 0000 Signed Impressions: Service Date/Time: Friday, July 22, 2016 18:42 - CONCLUSION: Wire wrap should not be an issue with MRI. Castillo Baca MD FACR Lower Extremity Ultrasound 07/22/16 0000 Signed Impressions: Service Date/Time: Friday, July 22, 2016 13:16 - CONCLUSION: Probable abscess. MRI could help ascertain whether this involves the joint. Castillo Baca MD FACR Knee MRI 07/22/16 0000 Signed Impressions: Service Date/Time: Friday, July 22, 2016 19:36 - CONCLUSION: Fluid collection as described above sitting in the fat above the quadriceps tendon that appears to communicate with the skin and all would be consistent with an inflammatory process without osteomyelitis. Castillo Baca MD FACR Knee X-Ray 07/20/16 0000 Signed Impressions: Service Date/Time: June 21:08 - CONCLUSION: Prepatellar soft tissue swelling. No acute intra-articular abnormality demonstrated. Miguel Ángel Borja MD Head CT 07/19/16 4692 Signed Impressions: Service Date/Time: Tuesday, July 19, 2016 17:38 - CONCLUSION: Improved aeration of the right sphenoid sinus. Normal appearance of the brain for age. Tyshawn Brooke MD Chest X-Ray 07/19/161721 Signed Impressions: Service Date/Time: Tuesday, July 19, 2016 17:37 - CONCLUSION: No acute disease. Tyshawn Brooke MD Objective Remarks GENERAL: This is a well-nourished, well-developed patient, in no apparent distress. CARDIOVASCULAR: Regular rate and regular rhythm without murmurs, gallops, or rubs. RESPIRATORY: Clear to auscultation. Breath sounds equal bilaterally. No wheezes , rales, or rhonchi. GASTROINTESTINAL: Abdomen soft, non-tender, nondistended. Normal, active bowel sounds MUSCULOSKELETAL: left knee is swollen but with no decrease in ROM. NEURO: Alert & Oriented x4 to person, place, time, situation. Moves all ext x4 Procedures none Medications and IVs Current Medications Meclizine HCl (Antivert) 25 mg ONCE ONCE PO Last administered on 07/19/16 17: 59; Start 07/19/16 at 17:30; Stop 07/19/16 at 17:31; Status DC Sodium Chloride 2 ml 2 ml UNSCH PRN IVF FLUSH AFTER USING IV ACCESS; Start at 17:30; Stop 07/19/16 at 20:14; Status DC Sodium Chloride 1,000 ml @ 1,000 mls/hr Q1H ONCE IV Last administered on 17:59; Start 07/19/16 at 17:22; Stop 07/19/16 at 18:21; Status DC Ampicillin Sodium/ Sulbactam Sodium/ Sodium Chloride (Unasyn Inj/NS Inj) 100 ml @ 200 mls/hr ONCE ONCE IV Last administered on 07/19/16 19:28; Start at 19:15; Stop 07/19/16 at 19:44; Status DC Sodium Chloride (NS Flush) 2 ml UNSCH PRN IV FLUSH FLUSH AFTER USING IV ACCESS ; Start 07/19/16 at 20:15 Sodium Chloride (NS Flush) 2 ml BID IV FLUSH Last administered on 07/21/16 08: 53; Start 07/19/16 at 21:00 Naloxone HCl 0.4 mg 0.4 mg UNSCH PRN IV SEE LABEL COMMENTS; Start 07/19/16 at 20:15 Sodium Chloride (NS 1000 ml Inj) 1,000 ml @ 84 mls/hr [id number] IV Last administered on 07/23/16 17:47; Start 07/20/16 at 08:15 Ondansetron HCl (Zofran Inj) 4 mg Q8HR PRN IV PUSH NAUSEA; Start 07/20/16 at 08 :15 Aspirin (Aspirin Chew) 81 mg DAILY CHEW Last administered on 07/23/16 09:00; Start 07/20/16 at 09:00 Acetaminophen (Tylenol) 650 mg Q4H PRN PO Temp > 100.4, pain 1-4 Last administered on 07/20/16 20:24; Start 07/20/16 at 15:45 Docusate Sodium (Colace) 100 mg BID PRN PO CONSTIPATION; Start 07/20/16 at 15: 45 Al Hydrox/Mg Hydrox/Simethicone (Mag-Al Plus Susp Liq) 30 ml Q6H PRN PO DYSPEPSIA; Start 07/20/16 at 15:45 Acetaminophen/ Hydrocodone Bitart ([place] 5-325 Mg) 1 tab Q6H PRN PO PAIN SCALE 5 TO 10 Last administered on 07/22/16 13:31; Start 07/20/16 at 21:45 Cephalexin Monohydrate 250 mg 250 mg Q6HR PO Last administered on 07/22/16 06: 24; Start 07/21/16 at 12:00; Stop 07/22/16 at 09:13; Status DC Cefazolin Sodium 1000 mg/Sodium Chloride 100 ml @ 200 mls/hr Q8H IV Last administered on 07/23/16 02:41; Start 07/22/16 at 10:00; Stop 07/23/16 at 10:48 ; Status DC Vancomycin HCl 1250 mg/Sodium Chloride 262.5 ml @ 262.5 mls/ hr Q18H IV Last administered on 07/23/16 14:06; Start 07/22/16 at 20:00 Pharmacy Profile Note (Vancomycin Consult Pharmacy) 0 ml @ 0 mls/hr UNSCH OTHER ; Start 07/22/16 at 18:00 Miscellaneous Information SPECIFIC LAB TO BE DRAWN:VANCOMY... ONCE ONCE .XX ; Start 07/25/16 at 01:45; Stop 07/25/16 at 01:46 Gadodiamide 10 ml 10 ml STK-MED ONCE IV Last administered on 07/22/16 19:57; Start 07/22/16 at 19:57; Stop 07/22/16 at 19:58; Status DC Ceftriaxone Sodium/Sodium Chloride (Rocephin Inj/NS Inj) 100 ml @ 200 mls/hr Q24H IV Last administered on 07/23/16 10:00; Start 07/23/16 at 11:00 A/P Assessment and Plan - generalized weakness fall precautions- consulted PT -dehydration/ acute kidney injury- resolved -left knee swelling after a fall with cellulitic changes- MRI of the left knee as above; MRI findings was previously reviewed with who recommended outpatient f/u with ortho office. consulted IR for draining the fluid collection. wound culture with MRSA- dc Rocephin and continue Vanco. -pancytopenia; evaluated by hematology last admission- fairly stable.f/u as outpatient -TIA; resumed aspirin -DVT prophylaxis with SCD's Debbie Barrera MD July 24, 2016 08:28
[2016-07-24] MEDS: SODIUM CHLORIDE 0.9% FLUSH 10 ML FLUSH IV FLUSH SCH ×2 (09:00→21:27)
[2016-07-24] MEDS: ASPIRIN 81 MG CHEW TAB CHEW SCH (09:38)
[2016-07-24] MEDS: VANCOMYCIN INJ 1,250 MG in SODIUM CHLOR 0.9% 250 ML INJ 250 ML IV SCH (09:47)
[2016-07-24 11:09] LABS: POTASSIUM 3.8 MEQ/L (3.5-5.1)
[2016-07-24 11:13] LABS: BICARBONATE 28.9 MEQ/L (21.0-32.0)
[2016-07-24 12:00] VITALS: BP 151/71; PULSE 58; RESP 17; TEMP 97.3; O2SAT 97
[2016-07-24 16:00] VITALS: BP 143/72; PULSE 64; RESP 18; TEMP 97.4; O2SAT 97
[2016-07-24 20:00] VITALS: BP 176/82; PULSE 66; RESP 18; TEMP 98.2; O2SAT 99
[2016-07-25] VITALS: BP 153/79; PULSE 66; RESP 18; TEMP 96.9; O2SAT 98
[2016-07-25] MEDS ORDERED: VANCOMYCIN TROUGH ONE (01:45)
[2016-07-25] MEDS ORDERED: ENALAPRILAT 2.5 MG/2 ML VIAL IV PUSH PRN (03:30)
[2016-07-25] MEDS: VANCOMYCIN INJ 1,250 MG in SODIUM CHLOR 0.9% 250 ML INJ 250 ML IV SCH ×2 (03:33→20:14)
[2016-07-25 04:00] VITALS: BP 144/69; PULSE 65; RESP 18; TEMP 96.8; O2SAT 98
[2016-07-25 08:00] VITALS: BP 155/74; PULSE 69; RESP 18; TEMP 96; O2SAT 97
[2016-07-25] MEDS: SODIUM CHLORIDE 0.9% FLUSH 10 ML FLUSH IV FLUSH SCH ×2 (09:16→20:13)
[2016-07-25] MEDS: ASPIRIN 81 MG CHEW TAB CHEW SCH (09:16)
--- NOTE | 2016-07-25 09:32 | HHI.PR ---
Subjective Remarks overall doing fine. no new complaints. no fever. Objective Vitals Vital Signs Date Time Temp Pulse Resp B/P Pulse Ox O2 Delivery O2 Flow Rate FiO2 07/25/16 08:00 96.0 69 18 155/74 97 07/25/16 04:00 96.8 65 18 144/69 98 07/25/16 00:00 96.9 66 18 153/79 98 07/24/16 20:00 98.2 66 18 176/82 99 07/24/16 16:00 97.4 64 18 143/72 97 07/24/16 12:00 97.3 58 17 151/71 97 I/O 07/24/16 07/24/16 07/24/16 07/25/16 07/25/16 07/25/16 06:59 14:59 22:59 06:59 14:59 22:59 Intake Total 240 ml 240 ml 240 ml Output Total 1700 ml 480 ml Balance -1700 ml -240 ml 240 ml 240 ml Intake Oral 240 ml 240 ml 240 ml Output Urine Total 1700 ml 480 ml # Voids 2 5 5 # Bowel Movements 1 0 2 Result Diagram: 07/22/16 0939 07/24/16 1032 Objective Remarks GENERAL: This is a well-nourished, well-developed patient, in no apparent distress. CARDIOVASCULAR: Regular rate and regular rhythm without murmurs, gallops, or rubs. RESPIRATORY: Clear to auscultation. Breath sounds equal bilaterally. No wheezes , rales, or rhonchi. GASTROINTESTINAL: Abdomen soft, non-tender, nondistended. Normal, active bowel sounds MUSCULOSKELETAL: left knee is swollen but with no decrease in ROM. NEURO: Alert & Oriented x4 to person, place, time, situation. Moves all ext x4 Procedures none Medications and IVs Current Medications Meclizine HCl (Antivert) 25 mg ONCE ONCE PO Last administered on 07/19/16t 17: 59; Start 07/19/16 at 17:30; Stop 07/19/16 at 17:31; Status DC Sodium Chloride 2 ml 2 ml UNSCH PRN IVF FLUSH AFTER USING IV ACCESS; Start at 17:30; Stop 07/19/16 at 20:14; Status DC Sodium Chloride 1,000 ml @ 1,000 mls/hr Q1H ONCE IV Last administered on 17:59; Start 07/19/16 at 17:22; Stop 07/19/16 at 18:21; Status DC Ampicillin Sodium/ Sulbactam Sodium/ Sodium Chloride (Unasyn Inj/NS Inj) 100 ml @ 200 mls/hr ONCE ONCE IV Last administered on 07/19/16 19:28; Start at 19:15; Stop 07/19/16 at 19:44; Status DC Sodium Chloride (NS Flush) 2 ml UNSCH PRN IV FLUSH FLUSH AFTER USING IV ACCESS ; Start 07/19/16 at 20:15 Sodium Chloride (NS Flush) 2 ml BID IV FLUSH Last administered on 07/25/16 09: 16; Start 07/19/16 at 21:00 Naloxone HCl 0.4 mg 0.4 mg UNSCH PRN IV SEE LABEL COMMENTS; Start 07/19/16 at 20:15 Sodium Chloride (NS 1000 ml Inj) 1,000 ml @ 84 mls/hr [id number] IV Last administered on 07/23/16 17:47; Start 07/20/16 at 08:15; Stop 07/24/16 at 08:28 ; Status DC Ondansetron HCl (Zofran Inj) 4 mg Q8HR PRN IV PUSH NAUSEA; Start 07/20/16 at 08 :15 Aspirin (Aspirin Chew) 81 mg DAILY CHEW Last administered on 07/25/16 09:16; Start 07/20/16 at 09:00 Acetaminophen (Tylenol) 650 mg Q4H PRN PO Temp > 100.4, pain 1-4 Last administered on 07/20/16 20:24; Start 07/20/16 at 15:45 Docusate Sodium (Colace) 100 mg BID PRN PO CONSTIPATION; Start 07/20/16 at 15: 45 Al Hydrox/Mg Hydrox/Simethicone (Mag-Al Plus Susp Liq) 30 ml Q6H PRN PO DYSPEPSIA; Start 07/20/16 at 15:45 Acetaminophen/ Hydrocodone Bitart ([place] 5-325 Mg) 1 tab Q6H PRN PO PAIN SCALE 5 TO 10 Last administered on 07/22/16 13:31; Start 07/20/16 at 21:45 Cephalexin Monohydrate 250 mg 250 mg Q6HR PO Last administered on 07/22/16 06: 24; Start 07/21/16 at 12:00; Stop 07/22/16 at 09:13; Status DC Cefazolin Sodium 1000 mg/Sodium Chloride 100 ml @ 200 mls/hr Q8H IV Last administered on 07/23/16 02:41; Start 07/22/16 at 10:00; Stop 07/23/16 at 10:48 ; Status DC Vancomycin HCl 1250 mg/Sodium Chloride 262.5 ml @ 262.5 mls/ hr Q18H IV Last administered on 07/25/16 03:33; Start 07/22/16 at 20:00 Pharmacy Profile Note (Vancomycin Consult Pharmacy) 0 ml @ 0 mls/hr UNSCH OTHER ; Start 07/22/16 at 18:00 Miscellaneous Information SPECIFIC LAB TO BE DRAWN:VANCOMY... ONCE ONCE .XX ; Start 07/25/16 at 01:45; Stop 07/25/16 at 01:46; Status DC Gadodiamide 10 ml 10 ml STK-MED ONCE IV Last administered on 07/22/16 19:57; Start 07/22/16 at 19:57; Stop 07/22/16 at 19:58; Status DC Ceftriaxone Sodium/Sodium Chloride (Rocephin Inj/NS Inj) 100 ml @ 200 mls/hr Q24H IV Last administered on 07/23/16 10:00; Start 07/23/16 at 11:00; Stop at 08:29; Status DC Enalaprilat (Vasotec Inj) 2.5 mg Q6H PRN IV PUSH bp>160/90 Last administered on 07/25/16 03:40; Start 07/25/16 at 03:30 A/P Assessment and Plan - generalized weakness fall precautions- consulted PT -dehydration/ acute kidney injury- resolved -left knee swelling after a fall with cellulitic changes- MRI of the left knee as above; MRI findings was previously reviewed with who recommended outpatient f/u with ortho office. consulted IR for draining the fluid collection.d/w the IR; this will be done tomorrow morning. wound culture with MRSA- continue Vanco. -elevated BP- hypertension?- will start norvasc- vasotec prn- will monitor and adjust the regimen as needed. -pancytopenia; evaluated by hematology last admission- fairly stable.f/u as outpatient -TIA; resumed aspirin -DVT prophylaxis with SCD's Debbie Barrera MD July 25, 2016 09:32
[2016-07-25] MEDS: amLODIPine BESYLATE 5 MG TAB PO SCH (11:35)
[2016-07-25 12:00] VITALS: BP 130/68; PULSE 57; RESP 17; TEMP 97.5; O2SAT 99
[2016-07-25 16:00] VITALS: BP 132/71; PULSE 62; RESP 18; TEMP 97.2; O2SAT 98
[2016-07-25 20:00] VITALS: BP 159/77; PULSE 64; RESP 18; TEMP 98.3; O2SAT 100
[2016-07-26] VITALS: BP 142/76; PULSE 67; RESP 16; TEMP 98.5; O2SAT 99
[2016-07-26 08:30] VITALS: BP 163/86; PULSE 64; RESP 14; TEMP 97; O2SAT 100
--- NOTE | 2016-07-26 08:35 | HHI.FF ---
Face to Face Verification Diagnosis: (1) Frequent falls Physical Therapy Order: Evaluate and Treat Home Health Nursing Order: Medical education Signs/symptoms of disease process Medication education-adverse effect Wound care and dressing changes I have seen patient Viktor Pathak on 07/26/16. My clinical findings support the need for the requested home health care services because: Ltd mobility - disease progression I certify that my clinical findings support that this patient is homebound because: Unsteady gait/balance Debbie Barrera MD July 26, 2016 08:35
--- NOTE | 2016-07-26 08:35 | HHI.PR ---
Subjective Remarks resting comfortably with no distress. no new complaints. afebrile. awaiting knee fluid collection aspiration. Objective Vitals Vital Signs Date Time Temp Pulse Resp B/P Pulse Ox O2 Delivery O2 Flow Rate FiO2 07/26/16 00:00 98.5 67 16 142/76 99 07/25/16 20:00 98.3 64 18 159/77 100 07/25/16 16:00 97.2 62 18 132/71 98 07/25/16 12:00 97.5 57 17 130/68 99 I/O 07/25/16 07/25/16 07/25/16 07/26/16 07/26/16 07/26/16 06:59 14:59 22:59 06:59 14:59 22:59 Intake Total 240 ml 1280 ml 240 ml Output Total 1000 ml Balance 240 ml 1280 ml -760 ml Intake Oral 240 ml 1280 ml 240 ml Output Urine Total 1000 ml # Voids 5 6 # Bowel Movements 2 2 2 Result Diagram: 07/22/16 0939 07/24/16 1032 Imaging Last Impressions Orbit X-Ray 07/22/16 0000 Signed Impressions: Service Date/Time: Friday, July 22, 2016 18:42 - CONCLUSION: Wire wrap should not be an issue with MRI. Castillo Baca MD FACR Lower Extremity Ultrasound 07/22/16 0000 Signed Impressions: Service Date/Time: Friday, July 22, 2016 13:16 - CONCLUSION: Probable abscess. MRI could help ascertain whether this involves the joint. Castillo Baca MD FACR Knee MRI 07/22/16 0000 Signed Impressions: Service Date/Time: Friday, July 22, 2016 19:36 - CONCLUSION: Fluid collection as described above sitting in the fat above the quadriceps tendon that appears to communicate with the skin and all would be consistent with an inflammatory process without osteomyelitis. Castillo Baca MD FACR Knee X-Ray 07/20/16 0000 Signed Impressions: Service Date/Time: June 21:08 - CONCLUSION: Prepatellar soft tissue swelling. No acute intra-articular abnormality demonstrated. Miguel Ángel Borja MD Head CT 07/19/16 1722 Signed Impressions: Service Date/Time: Tuesday, July 19, 2016 17:38 - CONCLUSION: Improved aeration of the right sphenoid sinus. Normal appearance of the brain for age. Tyshawn Brooke MD Chest X-Ray 07/19/16 1722 Signed Impressions: Service Date/Time: Tuesday, July 19, 2016 17:37 - CONCLUSION: No acute disease. Tyshawn Brooke MD Objective Remarks GENERAL: This is a well-nourished, well-developed patient, in no apparent distress. CARDIOVASCULAR: Regular rate and regular rhythm without murmurs, gallops, or rubs. RESPIRATORY: Clear to auscultation. Breath sounds equal bilaterally. No wheezes , rales, or rhonchi. GASTROINTESTINAL: Abdomen soft, non-tender, nondistended. Normal, active bowel sounds MUSCULOSKELETAL: left knee is swollen but with no decrease in ROM. NEURO: Alert & Oriented x4 to person, place, time, situation. Moves all ext x4 Procedures none Medications and IVs Current Medications Meclizine HCl (Antivert) 25 mg ONCE ONCE PO Last administered on 07/19/16 17: 59; Start 07/19/16 at 17:30; Stop 07/19/16 at 17:31; Status DC Sodium Chloride 2 ml 2 ml UNSCH PRN IVF FLUSH AFTER USING IV ACCESS; Start at 17:30; Stop 07/19/16 at 20:14; Status DC Sodium Chloride 1,000 ml @ 1,000 mls/hr Q1H ONCE IV Last administered on 17:59; Start 07/19/16 at 17:22; Stop 07/19/16 at 18:21; Status DC Ampicillin Sodium/ Sulbactam Sodium/ Sodium Chloride (Unasyn Inj/NS Inj) 100 ml @ 200 mls/hr ONCE ONCE IV Last administered on 07/19/16 19:28; Start at 19:15; Stop 07/19/16 at 19:44; Status DC Sodium Chloride (NS Flush) 2 ml UNSCH PRN IV FLUSH FLUSH AFTER USING IV ACCESS ; Start 07/19/16 at 20:15 Sodium Chloride (NS Flush) 2 ml BID IV FLUSH Last administered on 07/25/16 20: 13; Start 07/19/16 at 21:00 Naloxone HCl 0.4 mg 0.4 mg UNSCH PRN IV SEE LABEL COMMENTS; Start 07/19/16 at 20:15 Sodium Chloride (NS 1000 ml Inj) 1,000 ml @ 84 mls/hr [id number] IV Last administered on 07/23/16 17:47; Start 07/20/16 at 08:15; Stop 07/24/16 at 08:28 ; Status DC Ondansetron HCl (Zofran Inj) 4 mg Q8HR PRN IV PUSH NAUSEA; Start 07/20/16 at 08 :15 Aspirin (Aspirin Chew) 81 mg DAILY CHEW Last administered on 07/25/16 09:16; Start 07/20/16 at 09:00 Acetaminophen (Tylenol) 650 mg Q4H PRN PO Temp > 100.4, pain 1-4 Last administered on 07/20/16 20:24; Start 07/20/16 at 15:45 Docusate Sodium (Colace) 100 mg BID PRN PO CONSTIPATION; Start 07/20/16 at 15: 45 Al Hydrox/Mg Hydrox/Simethicone (Mag-Al Plus Susp Liq) 30 ml Q6H PRN PO DYSPEPSIA; Start 07/20/16 at 15:45 Acetaminophen/ Hydrocodone Bitart ([place] 5-325 Mg) 1 tab Q6H PRN PO PAIN SCALE 5 TO 10 Last administered on 07/22/16 13:31; Start 07/20/16 at 21:45 Cephalexin Monohydrate 250 mg 250 mg Q6HR PO Last administered on 07/22/16 06: 24; Start 07/21/16 at 12:00; Stop 07/22/16 at 09:13; Status DC Cefazolin Sodium 1000 mg/Sodium Chloride 100 ml @ 200 mls/hr Q8H IV Last administered on 07/23/16 02:41; Start 07/22/16 at 10:00; Stop 07/23/16 at 10:48 ; Status DC Vancomycin HCl 1250 mg/Sodium Chloride 262.5 ml @ 262.5 mls/ hr Q18H IV Last administered on 07/25/16 20:14; Start 07/22/16 at 20:00 Pharmacy Profile Note (Vancomycin Consult Pharmacy) 0 ml @ 0 mls/hr UNSCH OTHER ; Start 07/22/16 at 18:00 Miscellaneous Information SPECIFIC LAB TO BE DRAWN:VANCOMY... ONCE ONCE .XX ; Start 07/25/16 at 01:45; Stop 07/25/16 at 01:46; Status DC Gadodiamide 10 ml 10 ml STK-MED ONCE IV Last administered on 07/22/16 19:57; Start 07/22/16 at 19:57; Stop 07/22/16 at 19:58; Status DC Ceftriaxone Sodium/Sodium Chloride (Rocephin Inj/NS Inj) 100 ml @ 200 mls/hr Q24H IV Last administered on 07/23/16 10:00; Start 07/23/16 at 11:00; Stop at 08:29; Status DC Enalaprilat (Vasotec Inj) 2.5 mg Q6H PRN IV PUSH bp>160/90 Last administered on 07/25/16 03:40; Start 07/25/16 at 03:30 Amlodipine Besylate (Norvasc) 5 mg DAILY PO Last administered on 07/25/16 11: 35; Start 07/25/16 at 10:00 A/P Assessment and Plan - generalized weakness fall precautions- consulted PT -dehydration/ acute kidney injury- resolved -left knee swelling after a fall with cellulitic changes- MRI of the left knee as above; MRI findings was previously reviewed with who recommended outpatient f/u with ortho office. consulted IR for draining the fluid collection.d/w the IR; this will be done today. wound culture with MRSA- continue Vanco; will switch to po abx upon discharge. -elevated BP- hypertension?- started on norvasc- vasotec prn- will monitor and adjust the regimen as needed. -pancytopenia; evaluated by hematology last admission- fairly stable.f/u as outpatient -TIA; resumed aspirin -DVT prophylaxis with SCD's Discharge Planning dc home later today or in am. declined rehab. Debbie Barrera MD July 26, 2016 08:34
[2016-07-26] MEDS: SODIUM CHLORIDE 0.9% FLUSH 10 ML FLUSH IV FLUSH SCH (09:11)
[2016-07-26] MEDS: amLODIPine BESYLATE 5 MG TAB PO SCH (09:12)
[2016-07-26] MEDS: ASPIRIN 81 MG CHEW TAB CHEW SCH (09:12)
[2016-07-26] MEDS ORDERED: CLIN1CAP6 PO ×2 (11:23→11:33)
--- NOTE | 2016-07-26 11:24 | HHI.DS ---
Discharge Summary Admission Date July 25, 2016 at 11:17 Discharge Date: July 26, 2016 Admitting Diagnosis Dehydration, HIEN, Failure to thrive (1) Dehydration ICD Code: E86.0 Diagnosis: Principal Procedures none Brief History - From Admission patient is a 75 y/o male who presented to ER with generalized weakness. he was admitted recently to the hospital because of TIA and had work-up and was sent home. he's not a good historian but he says that his appetite is poor and hasn' t eaten as much. he says that he feels weak and had a fall a couple of days ago. he denies any chest pain, abdominal pain, nausea. no report of fever. CBC/BMP: 07/22/16 0939 07/24/16 1032 Significant Findings Laboratory Tests Test 07/24/16 07/25/16 10:32 02:05 Blood Urea Nitrogen 6 MG/DL (7-18) Calcium Level 7.9 MG/DL (8.5-10.1) Vancomycin Level Trough 12.3 MCG/ML (5.0-10.0) Imaging Last Impressions Orbit X-Ray 07/22/16 0000 Signed Impressions: Service Date/Time: Friday, July 22, 2016 18:42 - CONCLUSION: Wire wrap should not be an issue with MRI. Castillo Baca MD FACR Lower Extremity Ultrasound 07/22/16 0000 Signed Impressions: Service Date/Time: Friday, July 22, 2016 13:16 - CONCLUSION: Probable abscess. MRI could help ascertain whether this involves the joint. Castillo Baca MD FACR Knee MRI 07/22/16 0000 Signed Impressions: Service Date/Time: Friday, July 22, 2016 19:36 - CONCLUSION: Fluid collection as described above sitting in the fat above the quadriceps tendon that appears to communicate with the skin and all would be consistent with an inflammatory process without osteomyelitis. Castillo Baca MD FACR Knee X-Ray 07/20/16 0000 Signed Impressions: Service Date/Time: June 21:08 - CONCLUSION: Prepatellar soft tissue swelling. No acute intra-articular abnormality demonstrated. Miguel Ángel Borja MD Head CT 07/19/161721 Signed Impressions: Service Date/Time: Tuesday, July 19, 2016 17:38 - CONCLUSION: Improved aeration of the right sphenoid sinus. Normal appearance of the brain for age. Tyshawn Brooke MD Chest X-Ray 07/19/161721 Signed Impressions: Service Date/Time: Tuesday, July 19, 2016 17:37 - CONCLUSION: No acute disease. Tyshawn Brooke MD PE at Discharge GENERAL: This is a well-nourished, well-developed patient, in no apparent distress. CARDIOVASCULAR: Regular rate and regular rhythm without murmurs, gallops, or rubs. RESPIRATORY: Clear to auscultation. Breath sounds equal bilaterally. No wheezes , rales, or rhonchi. GASTROINTESTINAL: Abdomen soft, non-tender, nondistended. Normal, active bowel sounds MUSCULOSKELETAL: left knee is swollen but with no decrease in ROM. NEURO: Alert & Oriented x4 to person, place, time, situation. Moves all ext x4 Hospital Course - generalized weakness fall precautions- consulted PT -dehydration/ acute kidney injury- resolved -left knee swelling after a fall with cellulitic changes- MRI of the left knee as above; MRI findings was previously reviewed with who recommended outpatient f/u with ortho office. consulted IR for draining the fluid collection.d/w the IR; this will be done today. wound culture with MRSA- continue Vanco; will switch to po abx upon discharge. -elevated BP- hypertension?- started on norvasc- vasotec prn- will monitor and adjust the regimen as needed. -pancytopenia; evaluated by hematology last admission- fairly stable.f/u as outpatient -TIA; resumed aspirin -DVT prophylaxis with SCD's Pt Condition on Discharge: Good Discharge Disposition: Disch w/ Home Health Serv Discharge Time: <= 30 minutes Discharge Instructions DIET: Follow Instructions for: Heart Healthy Diet Activities you can perform: Regular-No Restrictions Follow up Referrals: Orthopedics PCP Follow-up New Medications: Clindamycin (Clindamycin) 300 Mg Cap 300 MG PO Q6H Infection Days 7 Ref 0 CAP Amlodipine (Norvasc) 5 Mg Tab 5 MG PO DAILY hypertension Days 30 Ref 0 TAB Aspirin (Aspirin Low Strength) 81 Mg Chew 81 MG CHEW DAILY tia Days 30 Ref 0 Debbie Jacinto MD July 26, 2016 11:24
[2016-07-26] MEDS ORDERED: AMLO5 PO (11:27)
[2016-07-26 12:20] VITALS: BP 132/65; PULSE 57; RESP 16; TEMP 96.5; O2SAT 100
--- NOTE | 2016-07-27 10:09 | RADHPO ---
EXAM DATE/TIME: 07/26/2016 08:24 [facility] COMPARISON: No previous studies available for comparison. INDICATIONS : Left knee abscess. MEDICAL HISTORY : Hypercholesterolemia. Hypertension. Diverticulitis. Stroke. TIA. MRSA. SURGICAL HISTORY : Appendectomy. ENCOUNTER: Initial ACUITY: 3 days PAIN SCORE: 4/10 LOCATION: Left knee. FLUID: Total volume of 0 cc of clear, red fluid was removed. Post procedure scanning reveals no hematoma or other complication. TECHNIQUE: 1. Ultrasound guidance for needle aspiration. 2. Aspiration. The risks, benefits, and alternatives to ultrasound guided aspiration were explained to the patient i n detail including the risk of bleeding and infection. Written and verbal informed consent was obtai mary. With the patient on the ultrasound table, ultrasound imaging was used to select the most appropriate approach for aspiration. Overlying skin was prepped and draped in the usual sterile fashion and with local anesthetic a dermatotomy was made with an 11 blade scalpel. A needle was introduced into the area in question. Aspiration was attempted however no fluid could be obtained. CONCLUSION: Uncomplicated attempted ultrasound guided aspiration. No fluid obtained. Cb Anderson MD on July 27, 2016 at 10:06 Board Certified Radiologist. This report was verified electronically.
== END 2016-07-26 18:25 | disposition home or self-care (01) | DRG 641 ==
LOC: PHED 15:49 → PHEDA 19:08 → PH3A 22:20 → PH3B 07-20 20:57 → OBSVTOIN 07-25 11:17
PROVIDERS: ADMIT Internal Medicine; ATTEND Internal Medicine
DX: E86.0 Dehydration (principal); N17.9 Acute kidney failure, unspecified; D61.818 Other pancytopenia; I10 Essential (primary) hypertension; R62.7 Adult failure to thrive; Z86.73 Personal history of transient ischemic attack (TIA), and cerebral infarction without residual deficits
CPT/HCPCS: 10160; 70250; 70450; 71010; 73564; 73723; 76882; 76942; 80048; 80053; 80202; 81001; 82550; 82565; 84484; 84520; 85025; 85610; 85730; 86403; 87070; 87147; 87186; 87205; 93005; 96360; A9579; G8987-GP; G8988-GP; J0295; J0690; J0696; J3370; J7030; J7050

== ENCOUNTER 2016-07-27 20:48 | Emergency (ER) | payer OTHER ==
[~2016-07-27] VITALS: Ht 177.8 cm; Wt 62.0 kg
[~2016-07-27 20:48] MED LIST changes: +AMLO5 PO; +ASPI81CH25 CHEW; -ASPI81TA11 PO; +CLIN1CAP6 PO; -FOLI1TAB4 PO; -MEGE40S PO; -THERM PO; -VITA100T2 PO; -ZYRT10CA PO
[2016-07-27 20:58] VITALS: BP 174/94; PULSE 55; RESP 16; TEMP 98.3; O2SAT 98
[2016-07-27 21:09] VITALS: BP 174/94; PULSE 59; RESP 16; TEMP 98.3; O2SAT 98
--- NOTE | 2016-07-27 21:27 | PD ---
HPI Chief Complaint: Dizziness Time Seen by Provider: 21:26 Travel History International Travel<30 days: No Contact w/Intl Traveler<30days: No Traveled to known affect area: No History of Present Illness HPI 75-year-old male with a history of TIA, pancytopenia, hypertension and recent admission for left knee cellulitis is brought to the emergency department by EMS for evaluation of lightheadedness. The patient states that he has had lightheadedness and dizziness since yesterday. He states that it is constant, no aggravating or alleviating factors. He denies any headache, nausea, vomiting , chest pain, shortness of breath, numbness or tingling, weakness, fever, chills. The patient was discharged from our hospital yesterday and was sent home. He states that he lives at home alone. He states that he has not yet filled his prescriptions from this recent admission, has not started taking the clindamycin. He states that he has been taking the aspirin but is unsure what other medications he is taking. He follows up at the [facility] Past Medical History Hx Anticoagulant Therapy: Yes Arthritis: No Asthma: No Heart Rhythm Problems: No Cancer: No Cardiovascular Problems: Yes High Cholesterol: Yes Chest Pain: No COPD: No Cerebrovascular Accident: Yes Diabetes: No Patient Takes Glucophage: No Diminished Hearing: No Diverticulitis: Yes Endocrine: Yes GERD: No Glaucoma: No Genitourinary: No Headaches: No Hepatitis: No Hiatal Hernia: No Hypertension: Yes Immune Disorder: No Kidney Stones: No Musculoskeletal: No Neurologic: No Psychiatric: No Reproductive: No Respiratory: No Immunizations Current: Yes Renal Failure: No Seizures: No Sleep Apnea: No Thyroid Disease: Yes Ulcer: No Tetanus Vaccination: < 5 Years Influenza Vaccination: Yes Past Surgical History Abdominal Surgery: Yes (BOWEL RESECTION X 2 FOR DIVERTICULITIS 1981 2006) AICD: No Appendectomy: Yes Cardiac Surgery: No Endocrine Surgery: No Genitourinary Surgery: No Gynecologic Surgery: No Neurologic Surgery: Yes (STROKE:TIA) Pacemaker: No Thoracic Surgery: No Other Surgery: Yes (PARTIAL THYROIDECTOMY) Social History Alcohol Use: Yes (12 PACK PER WEEK) Tobacco Use: No Substance Use: No Allergies-Medications (Allergen,Severity, Reaction): Coded Allergies: *MDRO Multi-Drug Resistant Organism (Verified Adverse Reaction, Unknown, MRSA, 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 SKIN: Warm and dry. Left anterior knee with very slight erythema, no warmth, no discharge or drainage. HEAD: Normocephalic and atraumatic. EYES: No injection, drainage, or hyphema noted. PERRLA. EOMI. ENT: No nasal drainage noted. Oropharynx is clear. NECK: Supple and the trachea is midline. CARDIOVASCULAR: Regular rate and rhythm. RESPIRATORY: Breath sounds are equal bilaterally with no accessory muscle use, wheezing, rhonchi, or crackles. GASTROINTESTINAL: Abdomen is soft, non-tender, and nondistended. MUSCULOSKELETAL: No obvious deformities, swelling, cyanosis, or ecchymosis is present throughout the upper and lower extremities. Patient has full range of motion without any signs of neurovascular compromise. Strength 5/5 upper and lower extremities equal bilaterally. Strength 5/5 upper and lower extremities and equal bilaterally. NEUROLOGICAL: Awake, alert, and oriented. Normal speech and gait. Cranial nerves are grossly intact. Data Data Last Documented VS Vital Signs Date Time Temp Pulse Resp B/P Pulse Ox O2 Delivery O2 Flow Rate FiO2 07/27/16 21:23 98 07/27/16 21:09 98.3 59 16 174/94 Room Air Orders Basic Metabolic Panel (Bmp) (07/27/16 22:01) Complete Blood Count With Diff (07/27/16 22:01) Urinalysis - C+S If Indicated (07/27/16 22:01) Clindamycin (Cleocin) (07/27/16 22:30) Urine Culture (07/27/16 22:20) Electrocardiogram (07/27/16 ) Labs Laboratory Tests Test 07/27/16 22:20 White Blood Count 3.0 TH/MM3 Red Blood Count 3.46 MIL/MM3 Hemoglobin 10.1 GM/DL Hematocrit 30.1 % Mean Corpuscular Volume 87.0 FL Mean Corpuscular Hemoglobin 29.2 PG Mean Corpuscular Hemoglobin 33.6 % Concent Red Cell Distribution Width 13.9 % Platelet Count 99 TH/MM3 Mean Platelet Volume 10.0 FL Neutrophils (%) (Auto) 57.6 % Lymphocytes (%) (Auto) 22.0 % Monocytes (%) (Auto) 13.6 % Eosinophils (%) (Auto) 5.7 % Basophils (%) (Auto) 1.1 % Neutrophils # (Auto) 1.7 TH/MM3 Lymphocytes # (Auto) 0.6 TH/MM3 Monocytes # (Auto) 0.4 TH/MM3 Eosinophils # (Auto) 0.2 TH/MM3 Basophils # (Auto) 0.0 TH/MM3 CBC Comment AUTO DIFF Differential Comment AUTO DIFF CONFIRMED Platelet Estimate LOW Platelet Morphology Comment NORMAL Ovalocytes 3+ Urine Color YELLOW Urine Turbidity CLEAR Urine pH 6.0 Urine Specific [place] 1.013 Urine Protein TRACE mg/dL Urine Glucose (UA) NEG mg/dL Urine Ketones 10 mg/dL Urine Occult Blood NEG Urine Nitrite NEG Urine Bilirubin NEG Urine Urobilinogen LESS THAN 2.0 MG/DL Urine Leukocyte Esterase NEG Urine RBC 1 /hpf Urine WBC 2 /hpf Urine Squamous Epithelial <1 /hpf Cells Urine Bacteria MOD /hpf Urine Hyaline Casts 11 /lpf Urine Mucus FEW /lpf Microscopic Urinalysis Comment CULTURE INDICATED Sodium Level 136 MEQ/L Potassium Level 3.4 MEQ/L Chloride Level 101 MEQ/L Carbon Dioxide Level 24.2 MEQ/L Anion Gap 11 MEQ/L Blood Urea Nitrogen 13 MG/DL Creatinine 0.79 MG/DL Estimat Glomerular Filtration 96 ML/MIN Rate Random Glucose 61 MG/DL Calcium Level 8.5 MG/DL [facility] Medical Decision Making Medical Screen Exam Complete: Yes Emergency Medical Condition: Yes Differential Diagnosis Failure to thrive versus inability to care for self versus unsafe discharge Narrative Course 75-year-old male to the emergency department by EMS for evaluation of lightheadedness. Patient is afebrile, vital signs are stable. EKG shows sinus bradycardia with a ventricular rate of 58 bpm, no acute ST elevations or depressions. 3 weeks ago the patient was admitted and worked up for TIA, had multiple CT scans, ultrasound imaging, and neurology consultation. He was just admitted for cellulitis of the left knee and discharged yesterday. Labs were unremarkable yesterday. Physical examination reveals a frail elderly male but no acute abnormalities. The patient seems to have poor insight into his medical conditions or medical care. It seems that the case management notes from yesterday's discharge summary states that he was supposed to be discharged home to his daughter's house. The patient was instead discharged home to his own house. The patient does not seem to be able to care for himself on his own at this point. I spoke with case management and nursing staff who contacted the patient's daughter. She initially was reluctant to come pick the patient up and was asking if we would keep him in the hospital overnight. We advised that there is no emergent or urgent need for the patient to stay in our hospital overnight and that ultimately he needs to go home with her and follow- up as outpatient with his primary care for possible placement in the future. The patient's daughter verbalized understanding and verbalized that she is going to come pick the patient up tonight and take him back to her house. The patient is comfortable with this plan. I discussed the case with my attending physician Dr. Salamanca who is aware of the patients history, physical examination findings, and treatment plan. Diagnosis Primary Impression: Inability to perform activities of daily living Additional Impression: Dizziness Referrals: Primary Care Physician 2 days Patient Instructions: General Instructions Additional Instructions: Make sure the patient is taking his antibiotics and other medications as prescribed. Follow-up with your Primary Care Physician at the [facility] in the next 2-3 days. Return to the ED for any acute worsening of symptoms. Med/Other Pt SpecificInfo: No Change to Meds Disposition: 01 DISCHARGE HOME Condition: Stable Grace Chávez Jul 27, 2016 21:27
[2016-07-27] MEDS ORDERED: CLINDAMYCIN 150 MG CAP PO ONE (22:30)
[2016-07-27 22:44] LABS: AUTOMATED NEUTROPHIL # 1.7 TH/MM3 (1.8-7.7); BASOPHIL % 1.1 % (0.0-2.0); EOSINOPHIL # 0.2 TH/MM3 (0-0.4); EOSINOPHIL % 5.7 % (0.0-4.0); HEMATOCRIT 30.1 % (39.0-51.0); LYMPHOCYTE # 0.6 TH/MM3 (1.0-4.8); MEAN CORPUSCULAR HEMOGLOBIN 29.2 PG (27.0-34.0); MEAN CORPUSCULAR HGB CONC 33.6 % (32.0-36.0); MONO % 13.6 % (0.0-8.0); NEUT % 57.6 % (16.0-70.0); PLATELET COUNT 99 TH/MM3 (150-450); RED BLOOD COUNT 3.46 MIL/MM3 (4.50-5.90); RED CELL DISTRIBUTION WIDTH 13.9 % (11.6-17.2)
[2016-07-27 23:01] LABS: BACTERIA, URINE MOD /hpf; BLOOD, URINE NEG (NEG); COMMENT (UR) CULTURE INDICATED; CULTURE IF INDICATED CULTURE INDICATED; GLUCOSE,URINE NEG (NEG); HYALINE CAST, URINE 11 /lpf (RARE); KETONE, URINE 10 mg/dL (NEG); MUCUS URINE FEW /lpf (OCC); NITRITE,URINE NEG (NEG); SQUAMOUS EPITHELIAL CELL URINE <1 /hpf (0-5); URINE COLOR YELLOW (YELLW/STRAW)
[2016-07-27 23:18] LABS: BICARBONATE 24.2 MEQ/L (21.0-32.0); POTASSIUM 3.4 MEQ/L (3.5-5.1)
[2016-07-27 23:31] LABS: HEMO FLAGS AUTO DIFF; OVALOCYTES 3+ (NORMAL); PLATELET ESTIMATE SMEAR LOW (NORMAL); PLATELET MORPHOLOGY NORMAL (NORMAL); SCAN/DIFF AUTO DIFF CONFIRMED
--- NOTE | 2016-07-28 14:23 | EKG ---
Date Performed: 07/27/2016 Time Performed: 21:08:36 PTAGE: 75 years EKG: SINUS BRADYCARDIA POSSIBLE RIGHT VENTRICULAR CONDUCTION DELAY NONSPECIFIC T-WAVE ABNORMALIT Y Low progressive T wave changes since prior tracing, cannot rule out ischemia Clinical correlation i s recommended BORDERLINE ECG PREVIOUS TRACING : 07/19/2016 18.12 DOCTOR: Jayden Villanueva Interpretating Date/Time 07/28/2016 14:21:12
== END 2016-07-28 00:20 | disposition home or self-care (01) ==
LOC: NEPE 20:48
DX: R42 Dizziness and giddiness (principal); R82.99 Other abnormal findings in urine; R94.31 Abnormal electrocardiogram [ECG] [EKG]; Z74.1 Need for assistance with personal care; I10 Essential (primary) hypertension; E07.9 Disorder of thyroid, unspecified; E78.00 Pure hypercholesterolemia, unspecified; Z79.01 Long term (current) use of anticoagulants; Z86.79 Personal history of other diseases of the circulatory system; Z86.2 Personal history of diseases of the blood and blood-forming organs and certain disorders involving the immune mechanism; Z87.19 Personal history of other diseases of the digestive system; Z87.39 Personal history of other diseases of the musculoskeletal system and connective tissue
CPT/HCPCS: 80048; 81001; 85025; 87086; 93005; 99283

== ENCOUNTER 2016-11-25 18:31 | Emergency (ER) | payer OTHER ==
[~2016-11-25] VITALS: Ht 177.8 cm; Wt 70.0 kg
[2016-11-25 18:33] VITALS: BP 136/60; PULSE 58; RESP 15; TEMP 98.5; O2SAT 95
[2016-11-25] MEDS ORDERED: LEVO25TA4 PO (19:09)
--- NOTE | 2016-11-25 19:33 | PD ---
HPI Chief Complaint: Complaint Time Seen by Provider: 19:01 Travel History International Travel<30 days: No Contact w/Intl Traveler<30days: No Traveled to known affect area: No History of Present Illness HPI This 75-year-old man who presents to the emergency department complaining of increased urination and nocturia and enuresis. Family is with him reports that he was being [facility] [place] [facility]. He's had low white count and red count recently and there is concern for bone marrow problems. They're to do a bone marrow biopsy. A did an x-ray was reportedly showed "fluid around the kidney" and he recently had a CT of his abdomen and pelvis and MRI of his head at [place] [facility] now with the [facility]. There are doctor called them yesterday and said that he should be seen in the emergency department because is swelling in the kidneys and the bladder a concern that they may become septic. He has no new or acute complaints. He apparently was [facility] now but it was too far for them. They're under the impression will be old records from the hospital with known regarding the imaging done. 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 SKIN: Focused skin assessment warm/dry. NECK: Trachea midline. No JVD. CARDIOVASCULAR: Regular rate and rhythm. No murmur appreciated. RESPIRATORY: No accessory muscle use. Clear to auscultation. Breath sounds equal bilaterally. GASTROINTESTINAL: Abdomen illness or pubic swelling and tenderness. No rebound or guarding. MUSCULOSKELETAL: No obvious deformities. No edema. NEUROLOGICAL: Awake and alert. Moderate confusion. No obvious cranial nerve deficits. Motor grossly within normal limits. Normal speech. Data Data Last Documented VS Vital Signs Date Time Temp Pulse Resp B/P (MAP) Pulse Ox O2 Delivery O2 Flow Rate FiO2 11/25/16 18:33 98.5 58 15 136/60 (85) 95 Orders Orders Complete Blood Count With Diff (11/25/16 19:25) Comprehensive Metabolic Panel (11/25/16 19:25) Urinalysis - C+S If Indicated (11/25/16 19:25) Iv Access Insert/Monitor (11/25/16 19:25) Ed Poc Ultrasound (11/25/16 ) Labs Laboratory Tests Test 11/25/16 20:00 Urine Color YELLOW Urine Turbidity CLEAR Urine pH 6.0 Urine Specific [place] 1.023 Urine Protein 30 mg/dL Urine Glucose (UA) NEG mg/dL Urine Ketones NEG mg/dL Urine Occult Blood NEG Urine Nitrite NEG Urine Bilirubin NEG Urine Urobilinogen LESS THAN 2.0 MG/DL Urine Leukocyte Esterase NEG Urine RBC LESS THAN 1 /hpf Urine WBC 1 /hpf Urine Mucus FEW /lpf Microscopic Urinalysis Comment CULT NOT INDICATED MDM Medical Decision Making Medical Screen Exam Complete: Yes Emergency Medical Condition: Yes Interpretation(s) UA: UA unremarkable Differential Diagnosis BPH, bladder outlet obstruction, urinary retention, UTI, other Narrative Course Medical decision making This a 75-year-old man who presents to the emergency Department with what sounds like bladder obstruction symptoms and probably distended urinary bladder and hydronephrosis seen on imaging. This is not clear. [facility] called [facility] and the only records reviewed at this time are a list of medications even from the [facility] [place]. We'll check urine, will do a post void ultrasound to look for evidence of bladder distention and hydronephrosis. Likely [place] catheter and outpatient follow-up. FINAL: Patient with apparent bladder outlet obstruction from a large prostate. He is voiding some now. He is refusing blood work. He does not want a catheter. I think he [facility] Procedures Procedure Narrative Point of care ultrasound: Post void but that ultrasound shows residual volume of about 500 with some left-sided hydronephrosis. Diagnosis Primary Impression: Bladder outlet obstruction Additional Instructions: [facility] You likely need urgent follow-up with the urologist. Disposition: 01 DISCHARGE HOME Condition: Stable Pierre Dickens MD Nov 25, 2016 19:33
[2016-11-25 20:40] LABS: BLOOD, URINE NEG (NEG); COMMENT (UR) CULT NOT INDICATED; CULTURE IF INDICATED CULT NOT INDICATED; GLUCOSE,URINE NEG (NEG); KETONE, URINE NEG (NEG); MUCUS URINE FEW /lpf (OCC); NITRITE,URINE NEG (NEG); URINE COLOR YELLOW (YELLW/STRAW)
== END 2016-11-25 21:27 | disposition home or self-care (01) ==
LOC: NEPC 18:31
DX: N32.0 Bladder-neck obstruction (principal); N40.1 Benign prostatic hyperplasia with lower urinary tract symptoms; N13.30 Unspecified hydronephrosis; R35.0 Frequency of micturition; R35.1 Nocturia; R32 Unspecified urinary incontinence; F03.90 Unspecified dementia, unspecified severity, without behavioral disturbance, psychotic disturbance, mood disturbance, and anxiety; Z86.2 Personal history of diseases of the blood and blood-forming organs and certain disorders involving the immune mechanism
CPT/HCPCS: 81001; 99283

== ENCOUNTER 2017-01-07 09:56 | Emergency (ER) | payer OTHER ==
[~2017-01-07] VITALS: Ht 180.3 cm; Wt 65.0 kg
[~2017-01-07 09:56] MED LIST changes: -CLIN1CAP6 PO; +LEVO25TA4 PO
[2017-01-07 09:57] VITALS: BP 196/79; PULSE 62; RESP 16; TEMP 98.5; O2SAT 100
--- NOTE | 2017-01-07 10:33 | PD ---
HPI Chief Complaint: Complaint Time Seen by Provider: 10:19 Travel History International Travel<30 days: No Contact w/Intl Traveler<30days: No Traveled to known affect area: No History of Present Illness HPI This patient has history of bladder outlet obstruction. He was seen here recently for the same. However he refused Reyes catheter placement which was recommended. He follows the [place] and has seen a [place]rologist according to the patient's daughter who comes in with him. Patient is incontinent of small spurts of urine periodically. He feels like his bladder is full. He is not having acute pain. Severity is moderate. This is a chronic problem over months to years of time. No alleviating factors. PFSH Past Medical History Hx Anticoagulant Therapy: Yes Arthritis: No Asthma: No Heart Rhythm Problems: No Cancer: No Cardiovascular Problems: Yes High Cholesterol: Yes Chest Pain: No COPD: No Cerebrovascular Accident: Yes Diabetes: No Diminished Hearing: No Diverticulitis: Yes Endocrine: Yes Gastrointestinal Disorders: No GERD: No Glaucoma: No Genitourinary: No Headaches: No Hepatitis: No Hiatal Hernia: No Hypertension: Yes Immune Disorder: No Implanted Vascular Access Dvce: No Kidney Stones: No Musculoskeletal: No Neurologic: No Psychiatric: No Reproductive: No Respiratory: No Immunizations Current: Yes Renal Failure: No Seizures: No Sleep Apnea: No Thyroid Disease: Yes Ulcer: No Past Surgical History Abdominal Surgery: Yes (BOWEL RESECTION X 2 FOR DIVERTICULITIS 1981 2006) AICD: No Appendectomy: Yes Cardiac Surgery: No Endocrine Surgery: No Genitourinary Surgery: No Gynecologic Surgery: No Neurologic Surgery: Yes (STROKE:TIA) Pacemaker: No Thoracic Surgery: No Other Surgery: Yes (PARTIAL THYROIDECTOMY) Social History Alcohol Use: Yes (12 PACK PER WEEK) Tobacco Use: No Substance Use: No Allergies-Medications (Allergen,Severity, Reaction): Coded Allergies: *MDRO Multi-Drug Resistant Organism (Verified Adverse Reaction, Unknown, MRSA, 01/07/17) 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 Positive bowel sounds. No hepato-splenomegaly, or palpable masses. No guarding. Large incisional hernia in the center of the abdomen, easily reducible SKIN: Focused skin assessment reveals no rash or ulcers. Skin is warm and dry. Palpation shows no induration or nodules. Data Data Last Documented VS Vital Signs Date Time Temp Pulse Resp B/P (MAP) Pulse Ox O2 Delivery O2 Flow Rate FiO2 01/07/17 11:00 57 16 185/80 (115) 99 Room Air 01/07/17 09:57 98.5 Orders Orders Urinary Catheter Insert/Apply (01/07/17 10:25) [facility] Medical Decision Making Medical Screen Exam Complete: Yes Emergency Medical Condition: Yes Medical Record Reviewed: Yes Differential Diagnosis Urinary retention, urinary incontinence, bladder outlet obstruction, BPH Narrative Course I have reviewed the patient's electronic medical record. Reviewed his visit here from a week ago This time the patient agrees to reyes catheter placement. He drained out 1600 cc of urine. He is switched to a leg bag and will go home with catheter He feels better and stable for outpatient follow-up with [place] urologist Diagnosis Primary Impression: Urinary retention Additional Instructions: Follow-up with [place] urologist Med/Other Pt SpecificInfo: Other Disposition: 01 DISCHARGE HOME Condition: Stable Davin Rodriguez MD Jan 07, 2017 10:33
[2017-01-07 10:48] VITALS: BP 252/116; PULSE 60; RESP 18; O2SAT 100
[2017-01-07 11:00] VITALS: BP 185/80; PULSE 57; RESP 16; O2SAT 99
[2017-01-07 13:30] VITALS: BP 180/76
== END 2017-01-07 13:43 | disposition home or self-care (01) ==
LOC: NEPE 09:56
DX: R33.9 Retention of urine, unspecified (principal); I10 Essential (primary) hypertension; Z79.01 Long term (current) use of anticoagulants
CPT/HCPCS: 51702